=== PATIENT | female | born 1960 | race Caucasian/White ===

== ENCOUNTER 2021-11-21 21:04 | Outpatient (REF) | payer BC, SELFPAY ==
[2021-11-21 21:41] LABS: CREATININE 0.8 mg/dL (0.55-1.02); TSH (W/Ref FT4) 0.88 uIU/mL (0.36-3.74)
[2021-11-23 10:49] LABS: Hepatitis C Ab w Rflx HCV PCR Negative (Negative)
== END 2021-11-21 21:05 | disposition home or self-care (01) ==
LOC: LBN 21:04
PROVIDERS: PCP Family Medicine; Visit Provider Family Medicine
DX: I10 Essential (primary) hypertension (principal); E03.9 Hypothyroidism, unspecified; Z11.59 Encounter for screening for other viral diseases
CPT/HCPCS: 86803; 82565; 84443

== ENCOUNTER 2023-03-12 17:01 | Outpatient (REF) | payer BC, SELFPAY ==
[2023-03-12 19:03] LABS: ALT 46 U/L (14-59); AST 74 U/L (15-37); Albumin 3.5 g/dL (3.4-5.0); Alkaline Phosphatase 113 U/L (46-116); BUN 12 mg/dL (7-18); Bilirubin, Total 0.3 mg/dL (0.2-1.0); CREATININE 0.8 mg/dL (0.55-1.02); Calcium 8.9 mg/dL (8.5-10.1); Chloride 101 mmol/L (98-107); Estimated GFR 82.74 (mL/min/1.73m2); Folate 3.2 ng/mL (8.6-20.0); Glucose 99 mg/dL (74-106); Potassium 4.4 mmol/L (3.5-5.1); Sodium 138 mmol/L (136-145); TSH (W/Ref FT4) 6.26 uIU/mL (0.36-3.74); Total Protein 7.9 g/dL (6.4-8.2)
== END 2023-03-12 17:02 | disposition home or self-care (01) ==
LOC: NCHCN 17:01
PROVIDERS: PCP Family Medicine; Visit Provider Family Medicine
DX: E53.8 Deficiency of other specified B group vitamins (principal); E03.9 Hypothyroidism, unspecified; R74.8 Abnormal levels of other serum enzymes; I10 Essential (primary) hypertension
CPT/HCPCS: 80053; 82746; 84439; 84443

== ENCOUNTER 2024-05-21 22:52 | Outpatient (REF) | payer BC, SELFPAY ==
[2024-05-21 20:41] LABS: TSH (W/Ref FT4) 1.48 uIU/mL (0.36-3.74)
--- OUTSIDE RECORDS SUMMARY | 2024-05-21 22:54 | XMS_ITS | Encounter Summary ---
Author Organization [facility] [place] [address] Care Team Providers Care Quality Assurance Intern Name Role Phone Venus Morales MD Primary Care Provider [phone] Encounter Details Date Type Department Care Team (Late st Contact Info) Description 12/10/2014 Telephone Cardiology at [address] [address] Jerome De La Torre Jr., MD [address] [place] [id number] Social History Tobacco Use Types Packs/Day Years Used Date Smoking Tobacco: Never Assessed Sex and Gender Information Value Date Recorded Sex Assigned at Not on file Gender Identity Not on file Sexual Orientation Not on file documented as of this encounter Miscellaneous Notes * Telephone Encounter - Jerome De La Torre Jr., MD - 12/14/2014 2:20 PM EST Has developed some exercise intolerance- used to be able to do more and HR only 120-130- Now runs out of steam and HR to 170 ? Exercise induced arrhythmia- should have a regular exercise test then go from there * Telephone Encounter - Glendy Andersen - 12/10/2014 1:[address] Mata would like a call back @ [phone] on Saturday concerning this patient. documented in this encounter Plan of Treatment Upcoming Encounters Date Type Department Care Team (Late st Contact Info) Description 07/08/2024 3:30 PM EDT Office Visit Cardiology at [address] [place] [address] Jeyson Angel, [facility] [place] [address] documented as of this encounter Visit Diagnoses Not on filedocumented in this encounter Care Teams Quality Assurance Intern Relationship Specialty Start Date End Date Venus Morales MD PCP - General 09/05/10 11/26/23 documented as of this encounter
--- OUTSIDE RECORDS SUMMARY | 2024-05-21 22:54 | XMS_ITS | Encounter Summary ---
Author Organization [facility] Address [address] [place] [address] Care Team Providers Care Merchandising Stock Associate Name Role Phone Venus Morales MD Primary Care Provider [phone] Encounter Details Date Type Department Care Team (Late st Contact Info) Description 11/22/2021 Lab Requisition [facility] Pathology & Laboratory Medicine - [address] [address] Outr Resulting Lab, Provider Social History Tobacco Use Types Packs/Day Years Used Date Smoking Tobacco: Never Assessed Sex and Gender Information Value Date Recorded Sex Assigned at Not on file Gender Identity Not on file Sexual Orientation Not on file documented as of this encounter Plan of Treatment Not on file documented as of this encounter Procedures Procedure Name Priority Date/Time Associated Diagnosis Comments HEPATITIS C AB W REFLEX TO HCV RNA BY PCR Routine 11/21/2021 12:47 EST documented in this encounter Results * HEPATITIS C AB W REFLEX TO HCV RNA BY PCR (11/21/2021 12:47 EST) Hep C Antibody Negative Negative 11/23/2021 10:44 EST [facility] Blood VENOUS BLOOD / Unknown 11/21/2021 12:47 EST 11/22/2021 20:14 EST Provider Outr Resulting Lab CHEMISTRY & BLOOD GAS ORDERABLES [facility] [address] [place] [address] documented in this encounter Visit Diagnoses Not on filedocumented in this encounter Care Teams Merchandising Stock Associate Relationship Specialty Start Date End Date Venus Morales MD [address] [place] [address] PCP - General 09/29/09 documented as of this encounter
--- OUTSIDE RECORDS SUMMARY | 2024-05-21 22:54 | XMS_ITS | Encounter Summary ---
Author Organization [facility] Address [facility] [address] Care Team Providers Care Hands And Dial Inspector Name Role Phone Venus Morales MD Primary Care Provider [phone] Reason for Referral * Consultation (Urgent) - Closed Specialty Diagnoses / Procedures Referred By Contact Referred To Contact Electrophysiology / Cardiology Diagnoses PAF (paroxysmal atrial fibrillation) paf Monroe Grey MD [facility] [place] [address] Carlos Alberto Castellanos MD [facility] [place] [address] Referral ID Status Reason Start Date Expiration Date V isits Requested Visits Authorized [id number] Closed Consult, Test & Treat PCP Updated and/or Approved 11/15/2023 11/14/2024 1 1 Encounter Details Date Type Department Care Team (Latest Contact Info) Description 11/15/2023 Transcribe Orders eDH Incoming Referrals [phone] Monroe Grey MD [facility] [place] [address] PAF (paroxysmal atrial fibrillation) Social History Tobacco Use Types Packs/Day Years Used Date Smoking Tobacco: Never Assessed Sex and Gender Information Value Date Recorded Sex Assigned at Not on file Gender Identity Not on file Sexual Orientation Not on file documented as of this encounter Plan of Treatment Upcoming Encounters Date Type Department Care Team (Late st Contact Info) Description 07/08/2024 3:30 PM EDT Office Visit Cardiology at [address] [place] [address] Jeyson Angel, [facility] [place] [address] Scheduled Referrals Name Type Priority Associated Diagnoses Order Schedule Referral to Cardiac Electrophysiology Outpatient Referral Urgent PAF (paroxysmal atrial fibrillation) Ordered: 11/15/2023 documented as of this encounter Visit Diagnoses Diagnosis PAF (paroxysmal atrial fibrillation) Atrial fibrillation documented in this encounter Care Teams Hands And Dial Inspector Relationship Specialty Start Date End Date Venus Morales MD PCP - General 09/05/10 11/26/23 documented as of this encounter
--- OUTSIDE RECORDS SUMMARY | 2024-05-21 22:54 | XMS_ITS | Encounter Summary ---
Author Organization [facility] Address [facility] [place] [address] Care Team Providers Care Superintendent Menagerie Name Role Phone Nubia Mantilla ALICAI Primary Care Provider [phone] Reason for Visit * Auth/Cert (Routine) Specialty Diagnoses / Procedures Referred By Contac t Referred To Contact Diagnoses Paroxysmal atrial fibrillation Paroxysmal atrial fibrillation [I48.0] Procedures PRO COMPREHENSIVE EP EVAL ABLATION ATR FIB PULM VEIN ISOLATION PRO INTRACARD ELECTROPHYS 3-DIMENS MAPPING PRG STIM/PACING HEART POST IV DRUG INFU PRG INTRACARD ECHO, THER/DX INTERVENT ELECTROPHYSIOLOGY PROCEDURE TRANSESOPHAGEAL ECHO DURING CATH/EP PROCEDURE Mariel Johnson MD [facility] [place] [address] [facility] Referral ID Status Reason Start Date Expiration Date Visits Re quested Visits Authorized [id number] 1 1 Encounter Details Date Type Department Care Team (Late st Contact Info) Description 05/18/2024 7:30 AM EDT - 05/18/2024 12:00 PM EDT Surgery [place] [address] Mariel Johnson MD [facility] [place] [address] ELECTROPHYSIOLOGY PROCEDURE Social History Tobacco Use Types Packs/Day Years Used Date Smoking Tobacco: Never Smokeless Tobacco: Never Alcohol Use Standard Drinks/Week Comments Not Currently 0 (1 standard drink = 0.6 oz pur e alcohol) [facility] Inpatient Questions Answer Date Recorded Does Anyone Try to Keep You From Having Contact with Others or Doing Things Outside Your Home? no 05/18/2024 Feels Threatened by Someone no 02/2024 Feels Unsafe at Home or Work/School no 05/18/2024 Physical Signs of Abuse Present no 05/18/2024 Sex and Gender Information Value Date Recorded Sex Assigned at Not on file Gender Identity Not on file Sexual Orientation Not on file documented as of this encounter Last Filed Vital Signs Vital Sign Reading Time Taken Comments Blood Pressure 130/94 05/18/2024 12:00 PM EDT Pulse 82 05/18/2024 12:00 PM EDT Temperature 36.2 ??C (97.2 ??F) 05/18/2024 11:05 AM E DT Respiratory Rate 21 05/18/2024 12:00 PM EDT Oxygen Saturation 93% 05/18/2024 12:00 PM EDT Inhaled Oxygen Concentration - - Weight - - Height - - Body Mass Index - - documented in this encounter Discharge Instructions * Patient Instructions* Monroe Cronin MD - 05/18/2024 7:34 AM EDT DISCHARGE INSTRUCTIONS FOLLOWING YOUR ABLATION Catheter Insertion Area Care - You may take a shower if you wish the morning after the procedure. Wash the area with soap and water. - Look for signs of infection over the next several days. - A little spot of blood at the catheter insertion area is not unusual. A bruise or a small lump under the skin is normal; they generally disappear in three or four days. In some cases you may develop a larger bruise that may appear to extend somewhat down your thigh; this is normal and will resolve, generally within 1-2 weeks. - Expect some mild tenderness over the area where the catheter was inserted. This should improve during the 24 to 48nhours after the procedure. - Take Tylenol if needed and contact your doctor if the discomfort worsens. Avoid higher-dose ibuprofen (greater than 400mg twice daily) due to increased bleeding risk while on blood thinners (does not include aspirin). Problems to Watch For If there is bright red blood flowing from the catheter insertion area STOP what you are doing and lie down. Hold pressure steadily on the area for fifteen minutes. Call for help. If the bleeding does not stop in fifteen minutes, call 911. If there is rapid swelling with a ???black and blue?? color at the catheter insertion area, there may be bleeding inside. Call your doctor if there is any increase in size. Check the insertion site for the next few days at home. Signs of infection are: Redness Swelling Yellow, white, green or brown, foul smelling drainage Increased soreness If you think there is an infection, take your temperature. Then call your doctor. The limb on the side where you had the catheter inserted should look and feel normal in its color, sensation and temperature. If your leg becomes cool, pale, blue or changing color with numbness and tingling, contact your doctor. If you feel faint or dizzy, lie down with your feet elevated. Have someone call the doctor. If you are alert, drink fluids. Activity - Do not bend over, strain or lift heavy objects for 48 hours after the procedure. - Do not participate in active sports for 1 week. - Avoid heavy lifting (greater than 10 pounds) for one week following your procedure. Additional discharge instructions: Pt advised to be vigilant for any of the following clinical findings (or anything else out of the ordinary): Chest discomfort. Inflammation in the form of pericarditis may result in chest pain, which is not uncommon after an ablation procedure for atrial fibrillation. It often may be position-dependent, or will be exacerbated by ventilatory movement. If the patient experiences chest discomfort, it should be medically evaluated to ascertain the significance, and to assess for more serious alternative considerations requiring urgent intervention. If it otherwise is pericarditis, it commonly responds well to anti-inflammatory medication. Fever or sweats, significant malaise. Possibly a consequence of infection. This requires that the Cardiac Electrophysiology Service be contacted, or otherwise an urgent medical assessment should be obtained. Shortness of breath, increased exertional intolerance. A variety of pulmonary or cardiac processes could be responsible for this. This requires that the Cardiac Electrophysiology Service be contacted, or otherwise an urgent medical assessment should be obtained. This is not an exhaustive list. If the patient experiences anything out of the ordinary post-procedure, he/she is encouraged to contact his/her physician or the Cardiac Electrophysiology Service . documented in this encounter Medications at Time of Discharge Medication Sig Dispensed Refills Start Date End Date apixaban (Eliquis) 5 mg tabletIndications:PAF (paroxysmal atrial fibrillation) Take 1 tablet by mouth 2 times daily. 60 tablet 3 04/21/2024 dilTIAZem (Tiazac) 300 mg ER 24 hr capsule Take 1 capsule by mouth Daily at Noon. 03/16/2024 levothyroxine (Synthroid) 75 mcg tablet Take 75 mcg by mouth every morning. 03/16/2024 multivitamin (THERAGRAN) Tablet Take 1 tablet by mouth daily. famotidine (PEPCID) 40 mg tablet Take 40 mg by mouth daily as needed. 05/16/2010 albuterol (VENTOLIN HFA) 90 mcg/Actuation inhaler 05/16/2010 documented as of this encounter Progress Notes * Margaux Kahn RN - 05/18/2024 1:44 PM EDT Peyton is A+Ox4, following commands. AVS reviewed with pt. No questions or concerns at this time. Ivs dc'd. Dr. Johnson bedside to remove R groin sutures. Scope patch removed per pt request. 1354: Pt discharged from unit * Shelby Mcadams RN - 05/18/2024 11:52 AM EDT Break coverage. * Margaux Kahn RN - 05/18/2024 11:05 AM EDT Pt to PACU 20 arrived via bed; monitor applied, alarms set and audible. documented in this encounter H&P Notes * Mariel Johnson MD - 05/18/2024 7:19 AM EDT Images from the original note were not included. 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 Her first documented episode of AF was in February of last year -when she woke up feeling 'wrong' and felt faint (has a history of ? Neurocardiogenic syncope). She indicated that in the past, she has had episodes of neurocardiogenic syncope, she has had a significant prodrome. With this episode, she fainted within few minutes. She ended up at [facility], where she was given IV diltiazem, spontaneously cardioverted after a while. More recently, after an episode of gastroenteritis that lasted for few days, she felt lightheaded and had another episode of loss of consciousness, she estimates that she has had up to 22 hours of atrial fibrillation at the time sometimes. The burden and frequency of atrial fibrillation episodes appears to be increasing. Some triggers include possible dehydration...' No recent fevers/chills or infectious symptoms NPO since last night No food since last night No clear liquids since this am Held anticoagulation since this am Fever, cough, upper respiratory symptoms: yes/no no GI symptoms: no Card Symptoms: palpitations last night No prior issues with sedation / anesthesia Patient Active Problem List Diagnosis PAF (paroxysmal atrial fibrillation) Asthma Gastroesophageal reflux Obstructive sleep apnea Hypothyroidism Facility-Administered Medications Prior to Admission Medication Dose Route Frequency Provider Last Rate Last Admin sodium chloride 0.9% infusion 1,000 mL Intravenous Continuous Mariel Johnson MD Medications Prior to Admission Medication Sig Dispense Refill Last Dose apixaban (Eliquis) 5 mg tablet Take 1 tablet by mouth 2 times daily. 60 tablet 3 05/17/2024 dilTIAZem (Tiazac) 300 mg ER 24 hr capsule Take 1 capsule by mouth Daily at Noon. 05/17/2024 levothyroxine (Synthroid) 75 mcg tablet Take 75 mcg by mouth every morning. 05/18/2024 multivitamin (THERAGRAN) Tablet Take 1 tablet by mouth daily. 05/15/2024 famotidine (PEPCID) 40 mg tablet Take 40 mg by mouth daily as needed. 05/17/2024 albuterol (VENTOLIN HFA) 90 mcg/Actuation inhaler Unknown History reviewed. No pertinent family history. Social History Socioeconomic History Marital status: Spouse name: None Number of children: None Years of education: None Highest education level: None Occupational History None Tobacco Use Smoking status: Never Smokeless tobacco: Never Substance and Sexual Activity Alcohol use: Not Currently Drug use: Not Currently Sexual activity: None Other Topics Concern None Social History Narrative None Social Determinants of Health Financial Resource Strain: Not on file Food Insecurity: Not on file Transportation Needs: Not on file Physical Activity: Not on file Intimate Partner Violence: Not At Risk (05/18/2024) IPV Inpatient Questions Prevent Contact with Others: no Feels Threatened by Someone: no Feels Unsafe at Home: no Physical Signs of Abuse Present: no Housing Stability: Not on file Exam Patient Vitals for the past 24 hrs: Temp Pulse Resp BP SpO2 O2 Device 05/18/24 0631 36.8 ??C (98.2 ??F) (!) 104 20 138/90 97 % RA Physical Exam Constitutional: Comments: There is no height or weight on file to calculate BMI. HENT: Nose: No congestion. Mouth/Throat: Pharynx: No oropharyngeal exudate. Cardiovascular: Rate and Rhythm: Regular rhythm. Tachycardia present. Pulses: Normal pulses. Pulmonary: Effort: Pulmonary effort is normal. Skin: General: Skin is warm. Neurological: Mental Status: She is alert. Impression This is a 63 y.o. woman with pAF here for elective AF ablation (PFA) No recent sustained episodes of AF On apixaban - no missed doses Low [id number] score. No need for VIVIEN We discussed risks of the procedure, consent obtained MARIEL JOHNSON MD 05/18/2024 Pager [phone] Plan 1) Anticipate PFA ablation for AF 2) Dscharge to home later today 3) Consent in physical chart ASA: 1: Normally healthy patient Mallampati: II: tonsillar pillars are blocked by the tongue Sedation Plan: anesthesia MARIEL JOHNSON MD Recent Results (from the past 24 hour(s)) CBC (with Diff) Result Value Ref Range White Blood Cell 7.54 4.00 - 9.50 x10(3)/mcL Red Blood Cell 4.05 4.00 - 5.21 x10(6)/mcL Hemoglobin 13.1 11.7 - 15.5 g/dL Hematocrit 40.3 35.7 - 45.8 % Mean Cell Volume 99.5 (H) 82.6 - 94.4 fL Mean Cell Hemoglobin 32.3 (H) 27.1 - 32.0 pg Mean Cell Hemoglobin Concentration 32.5 31.7 - 35.0 g/dL Platelet 313 145 - 357 x10(3)/mcL Mean Platelet Volume 8.7 7.6 - 12.9 fL RDW Standard Deviation 48.8 (H) 37.0 - 46.0 fL RDW coefficient of variation 13.2 11.5 - 14.1 % NRBC% auto 0.0 % NRBC Absolute 0.00 0.00 - 0.00 x10(3)/mcL Neutrophil % 48.9 % Neutrophil Absolute 3.69 1.70 - 6.10 x10(3)/mcL Lymph % 35.8 % Lymph Absolute 2.70 0.90 - 3.20 x10(3)/mcL Monocyte % 9.7 % Monocyte Absolute 0.73 0.30 - 0.90 x10(3)/mcL Eos % 4.4 % Eos Absolute 0.33 0.00 - 0.40 x10(3)/mcL Basophil % 0.9 % Baso Absolute 0.07 0.00 - 0.10 x10(3)/mcL Immature Gran % 0.3 % Immature Gran Absolute 0.02 0.00 - 0.04 x10(3)/mcL documented in this encounter Plan of Treatment Upcoming Encounters Date Type Department Care Team (Late st Contact Info) Description 07/08/2024 3:30 PM EDT Office Visit Cardiology at [address] [place] [address] Jeyson Angel PA [facility] [place] [address] documented as of this encounter Procedures Procedure Name Priority Date/Time Associated Diagnosis Comments ELECTROPHYSIOLOGY PROCEDURE Routine 05/18/2024 10:25 AM EDT Paroxysmal atrial fibrillation BLOOD GAS, POC Routine 05/18/2024 9:14 AM EDT EXTRA TUBES Routine 05/18/2024 6:28 AM EDT GREEN TUBE HOLD Routine 05/18/2024 6:28 AM EDT CBC (WITH DIFF) STAT 05/18/2024 6:28 AM EDT BASIC METABOLIC PANEL Add-On 05/18/2024 6:28 AM EDT EKG 12-LEAD Routine 05/18/2024 6:22 AM EDT Paroxysmal atrial fibrillation documented in this encounter Results * ELECTROPHYSIOLOGY PROCEDURE (05/18/2024 10:25 AM EDT) Anatomical Region Laterality Modality Other Narrative 05/19/2024 7:38 AM EDT Table formatting from the original result was not included. Images from the original result were not included. 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 Method: ??After confirmation of informed consent, the patient was brought to the Electrophysiology Laboratory in the fasting state. A time out was performed. Continuous electrocardiographic monitoring was instituted. General anesthesia and airway were managed by the Anesthesiology Service. Both femoral regions were prepared and draped in the usual sterile manner. Local anesthesia was achieved with a 3:2 mixture of 2% lidocaine and 0.5% bupivacaine administered subcutaneously. Using ultrasound ??for guidance, the following hemostatic sheaths (all with sidearms and flushed) were inserted using a modified Seldinger technique and confirmed in the vein by ultrasound as well as fluoroscopy. ??An i.v. Heparin bolus was now administered followed by an infusion. ??An ACT target of 300-350 seconds was maintained for the procedure. Catheters were positioned under fluoroscopic or EAM mapping guidance as follows: ?? Sheath Catheter Insertion site Site 8.5-Fr short exchanged for 16-Fr ?'FaraDrive' Steerable Sheath 7-Fr Pentaray mapping catheter OR 13-Fr 'FaraWave' pulsed field ablation catheter Right femoral vein Left atrium 9-Fr long 8-Fr Soundstar intracardiac echo Left femoral vein Right atrium ?? 7-Fr long 6-Fr Decapolar Inquiry ??Left femoral vein Coronary sinus Of note the coronary sinus was difficult to cannulate and our catheter would not advance beyond the proximal portion of the vein. Total Fluoroscopy Time: ??15.7 ??minutes. Total dose area product: 409 cGycm2. At the conclusion of the ablation procedure, prior to catheter removal, the pulmonary veins and the pericardial space were surveyed, with no significant effusion identified (unchanged from initial ICE imaging). ?? The long sheaths were exchanged over guidewires for short sheaths. All femoral vein access sites were closed using the Vascade closure device. The left sided venotomies were closed with Vascade MVP and the larger right sided venotomy was closed with a Vascade XL. ?? A single 'figure 8' suture was also applied over the skin of the right femoral vein access site. Catheters and sheaths were removed, and hemostasis was achieved via manual compression (following administration of a total of 40 mg of protamine intravenously). The patient tolerated the procedure well, with no apparent acute complications and was transferred to the recovery area in stable condition. Transeptal Access: A Carto-Sound shell of the left atrium was created from contours obtained with ultrasound imaging. A 180 cm soft J-tipped wire was advanced into the short sheath and into the SVC. The 16 Fr FaraDrive introducer and its dilator were advanced into the SVC over this wire. The dermotomy incision was widened if necessary to accommodate the sheath. The J-wire was now removed and the sheath was allowed to bleed back for estimation of left atrial pressure and to obtain an arterial gas sample (O2 sat 99%). A 19pay Protrack Pigtail transeptal access wire (180cm, 0.035) was placed into the FaraDrive sheath. The tip of the sheath dilator was positioned at the inferior and anterior aspect of the foramen ovalis (with 'tenting of the fossa' seen) and the guidewire was advanced in the left atrium guided by ICE imaging, after a brief < 1 second application of radiofrequency energy and visualisation with ICE for left atrial entry. Of note the orientation of the heart was somewhat unusual and resulted in difficult ICE visualization of the transseptal system at times. The transseptal access wire was advanced into the LUPV and the 'FaraDrive' sheath was advanced over the guidewire into the left atrium after appropriately de-airing the catheter and flushing thoroughly according to provided instructions. All side arms received a continuous infusion ??of heparinised saline. The RF guidewire was now replaced with a J-Tipped 0.035 Montemayor guidewire placed through the FaraPulse catheter, for pulmonary vein positioning. Left Atrial Anatomy and Mapping: Left atrial geometry was confirmed by comparison to the ultrasound contours using the Carto Electroanatomic mapping system. Geometry and a voltage map(s) were created using the Pentaray mapping catheter. There were four main pulmonary veins. Ablation in the Left Atrium: The left upper pulmonary vein was targeted for ablation first, followed by the LIPV, RIPV and RSPV. Limited electroanatomic mapping was performed in each of the veins which were then sampled for electrical signal with the FaraPulse mapping catheter. This catheter was manipulated into 'Flower' and 'Basket' orientations as appropriate. Of note our Montemayor wire required replacement during the case as the first wire would not move freely within the catheter. Lesion parameters were as follows Vein 'Basket' / number of lesions 'Flower'/ number of lesions Additional lesions Notes LUPV 4 4 2 Ruthie 2 Inferior bias ? LIPV 4 4 ? RIPV 4 4 2 Septal ruthie 2 Posterior ruthie ? RUPV 4 4 ? After initial re-map ?? 2 right inferior/anterior 2 right superior/roof 2 right inferior/anterior with inferior bias ?Grand Total Total 16 16 14 46 Left atrial dwell time: 70 minutes Post Ablation Repeat mapping After completion of the ablation lesions, the EAM system was used to perform a voltage map of the atrium and to confirm pulmonary vein isolation. ??Additional lesions were delivered as summarized above with excellent results on repeat mapping. See the image below for full details. The catheters were now returned to the right atrium. Post-ablation Assessment and EPS: Parameters Values (ms) Intervals ?? Cycle length 622 NH 180 QRS 83 QT 377 QTc ?? AH 81 HV 42 ?? AV Wenkebach 310 AERP 600/230 AVN ERP </= AERP Posterior view of the voltage map of the left atrium pre (left) and post (right) pulsed field ablation. Results: Successful PFA isolation of all 4 main pulmonary veins Discharge home Two hours of bedrest for venotomy healing. A figure 8 stitch was placed over the right sided venotomy. 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, present for the entire procedure and personally edited this note MARIEL JOHNSON MD Mariel Johnson MD EP PROCEDURE ORDERAB LES * (ABNORMAL) BLOOD GAS, POC (05/18/2024 9:14 AM EDT) Sodium, POC 141 135 - 145 mmol/L 05/21/2024 11:25 AM EDT [facility] Potassium, POC 3.1(L) 3.5 - 5.0 mmol/L 05/21/2024 11:25 AM EDT [facility] pH, POC 7.38 7.35 - 7.45 05/21/2024 11:25 AM EDT [facility] Ionized Calcium, POC 1.18 1.15 - 1.33 mmol/L 05/21/2024 [facility] pCO2, POC 34(L) 35 - 45 mmHg 05/21/2024 11:25 AM EDT [facility] pO2, POC 185(H) 85 - 104 mmHg 05/21/2024 11:[facility] Base Excess, POC -5.0(L) -3.0 - 3.0 mmol/L 05/21/2024 11:25 AM EDT [facility] Hematocrit, POC 31.0(L) 35.7 - 45.8 %PCV 05/21/2024 11:25 AM EDT [facility] Hemoglobin, POC 10.5(L) 11.7 - 15.5 g/dL 05/21/2024 11:25 AM [facility] Comment:The calculation of h emoglobin from hematocrit assumes a normal MCHC. Bicarbonate, POC 19.8(L) 20.0 - 26.0 mmol/L 05/21/2024 11:25 AM EDT [facility] Carbon Dioxide, POC 21(L) 22 - 31 mmol/L 05/21/2024 11:25 AM [facility] Blood VENOUS BLOOD SPECIMEN / Unknown 05/18/2024 9:14 AM EDT 05/21/2024 11:26 AM EDT Mariel Johnson MD POINT OF CARE TEST O RDERABLES [facility] [place] [address] * (ABNORMAL) Basic Metabolic Panel (05/18/2024 6:28 AM EDT) Glucose 110 65 - 199 mg/dL 05/18/2024 9:11 AM [facility] Blood Urea Nitrogen 7(L) 8 - 18 mg/dL 05/18/2024 9:11 AM [facility] Creatinine 0.86 0.70 - 1.20 mg/dL 05/18/2024 9:[facility] Sodium 143 135 - 145 mMol/L 05/18/2024 9:11 AM [facility] Potassium 4.5 3.5 - 5.0 mMol/L 05/18/2024 9:11 AM [facility] Chloride 107 98 - 107 mMol/L 05/18/2024 9:11 [facility] Carbon Dioxide 24 22 - 31 mMol/L 05/18/2024 9:11 AM [facility] Anion Gap 12 5 - 15 mMol/L 05/18/2024 9:11 AM EDT [facility] Calcium 9.8 8.5 - 10.5 mg/dL 05/18/2024 9:11 AM EDT [facility] Est Glomerular Filtration Rate - Female 76 mL/min/1. 73 m?? 05/18/2024 9:11 AM EDT [facility] Comment: This patient's estimated GFR was calculated using the 2020 CKD-EPI equation. The estimated GFR can vary from the measured GFR by up to 30% in the absence of rapidly changing kidney function. Assessment of the estimated GFR is not appropriate when creatinine concentrations are rapidly changing. For clinical situations in which a more precise estimate of GFR is necessary, consider alternative methods of GFR estimation such as a 24-hour urine creatinine clearance. Assignment of CKD stage 1 - 5 for patients with an eGFR near the transition point between stages may be based on clinical assessment of muscle mass and symptoms in addition to eGFR. Link: eGFR Calculator [employer] Fasting Status No 05/18/2024 9:11 AM EDT [facility] Blood VENOUS BLOOD SPECIMEN / Unknown 05/18/2024 6:28 AM EDT 05/18/2024 7:00 AM EDT Mariel Johnson MD CHEMISTRY ORDERABLES Performing Organization Address City/[facility]/ZIP Co de Phone Number [facility] [place] [address] * Green Tube HOLD (05/18/2024 6:28 AM EDT) Green Hold Hold for Add-on 05/18/2024 8:01 AM EDT [facility] [facility] Blood VENOUS BLOOD SPECIMEN / Unknown 05/18/2024 6:28 AM EDT 05/18/2024 7:00 AM EDT Mariel Johnson MD CHEMISTRY ORDERABLES [facility] [place] [address] * (ABNORMAL) CBC (with Diff) (05/18/2024 6:28 AM EDT) White Blood Cell 7.54 4.00 - 9.50 x10(3)/mc L 05/18/2024 7:08 AM [facility] Red Blood Cell 4.05 4.00 - 5.21 x10(6)/mc L 05/18/2024 7:08 AM [facility] Hemoglobin 13.1 11.7 - 15.5 g/dL 05/18/2024 7:08 AM [facility] Hematocrit 40.3 35.7 - 45.8 % 05/18/2024 7:08 AM [facility] Mean Cell Volume 99.5(H) 82.6 - 94.4 fL 05/18/2024 7:08 AM [facility] Mean Cell Hemoglobin 32.3(H) 27.1 - 32.0 pg 05/18/2024 7:08 AM [facility] Mean Cell Hemoglobin Concentration 32.5 31.7 - 35.0 g/dL 05/18/2024 7:08 AM [facility] Platelet 313 145 - 357 x10(3)/mc L 05/18/2024 7:08 AM [facility] Mean Platelet Volume 8.7 7.6 - 12.9 fL 05/18/2024 7:08 AM [facility] RDW Standard Deviation 48.8(H) 37.0 - 46.0 fL 05/18/2024 7:08 AM [facility] RDW coefficient of variation 13.2 11.5 - 14.1 % 05/18/2024 7:08 AM [facility] NRBC% auto 0.0 % 05/18/2024 7:08 AM [facility] NRBC Absolute 0.00 0.00 - 0.00 x10(3)/mc L 05/18/2024 7:08 AM [facility] Neutrophil % 48.9 % 05/18/2024 7:08 AM EDT [facility] Neutrophil Absolute 3.69 1.70 - 6.10 x10(3)/mc L 05/18/2024 7:08 AM EDT [facility] Lymph % 35.8 % 05/18/2024 7:08 AM EDT [facility] Lymph Absolute 2.70 0.90 - 3.20 x10(3)/mc L 05/18/2024 7:08 AM EDT [facility] Monocyte % 9.7 % 05/18/2024 7:08 AM EDT [facility] Monocyte Absolute 0.73 0.30 - 0.90 x10(3)/mc L 05/18/2024 7:08 AM EDT [facility] Eos % 4.4 % 05/18/2024 7:08 AM EDT [facility] Eos Absolute 0.33 0.00 - 0.40 x10(3)/mc L 05/18/2024 7:08 AM EDT [facility] Basophil % 0.9 % 05/18/2024 7:08 AM EDT [facility] Baso Absolute 0.07 0.00 - 0.10 x10(3)/mc L 05/18/2024 7:08 AM EDT [facility] Immature Gran % 0.3 % 7:08 AM EDT [facility] Immature Gran Absolute 0.02 0.00 - 0.04 x10(3)/mc L 05/18/2024 7:08 AM EDT [facility] Blood No Charge / Unknown 05/18/2024 6:28 AM EDT 05/18/2024 6:46 AM EDT Mariel Johnson MD HEMATOLOGY ORDERABLE S [facility] [place] [address] * EKG 12 Lead (05/18/2024 6:22 AM EDT) Ventricular rate 101 BPM MUSE SYSTEM Atrial Rate 101 BPM MUSE SYSTEM P-R Interval 154 ms MUSE SYSTEM QRS Duration 80 ms MUSE SYSTEM Q-T Interval 346 ms MUSE SYSTEM QTC Calculated (Bezet) 448 ms MUSE SYSTEM Calculated P Gary 47 degrees MUSE SYSTEM Calculated R Gary -28 degrees MUSE SYSTEM Calculated T Gary 64 degrees MUSE SYSTEM INTERPRETATION Sinus tachycardia Low voltage QRS Poor R wave progression Borderline ECG No previous ECGs available I personally reviewed the tracing and edited the fellows interpretation Confirmed by fellow MD Iraj, Kary ([id number]) on 05/18/2024 3:34:11 PM Confirmed by MD Mark Jon ([id number]) on 05/19/2024 2:03:37 PM MUSE SYSTEM 05/18/2024 6:22 AM EDT 05/19/2024 2:03 PM EDT Mariel Johnson MD ECG ORDERABLES MUSE SYSTEM documented in this encounter Visit Diagnoses Diagnosis Paroxysmal atrial fibrillation Atrial fibrillation Paroxysmal atrial fibrillation Atrial fibrillation documented in this encounter Administered Medications Inactive Administered Medications - up to 3 most recent administrations Medication Order MAR Action Action Date Dose Rate Site BUPivacaine (pf) (Marcaine) (5 mg/mL) 0.5% injection 150 mg 150 mg (30 mL), Subcutaneous, ONCE, 1 dose, On Sat05/18/24 at 0945, EP (Intra-Procedure), Routine Given 05/18/2024 8:20 AM EDT 150 mg lactated ringers infusion 1,000 mL, at 100 mL/hr, Intravenous, CONTINUOUS, Starting on Sat05/18/24 at 0630, Until Sat05/18/24 at 1354, Day of Surgery (Day of Procedure) New Bag 05/18/2024 8:58 AM EDT New Bag 05/18/2024 7:38 AM EDT New Bag 05/18/2024 6:38 AM EDT 1,000 mLs 100 mL/hr lidocaine (Xylocaine) (20 mg/mL) 2% injection 400 mg 400 mg (20 mL), Subcutaneous, ONCE, 1 dose, On Sat05/18/24 at 0945, EP (Intra-Procedure), Routine Given 05/18/2024 8:20 AM EDT 400 mg lidocaine (Xylocaine) 1% (10 mg/mL) injection 3 mg 3 mg (0.3 mL), Subcutaneous, ONCE PRN, 1 dose, Starting on Sat05/18/24 at 0611, Until Sat05/18/24 at 0638, for discomfort with PIV insertion, Day of Surgery (Day of Procedure), Routine Given 05/18/2024 6:38 AM EDT 3 mg scopolamine (Transderm-Scop) 1 mg over 3 days patch 1 patch 1 patch, Transdermal, Administer over 24 Hours, ONCE, 1 dose, On Sat05/18/24 at 0715, Day of Surgery (Day of Procedure), Routine Patch Applied 05/18/2024 7:07 AM EDT 1 patch 01- Ear Behind (Left) documented in this encounter Active and Recently Administered Medications Times are shown in EDT. Scheduled Medication Order 05/16/2024 05/17/2024 05/18/2024 acetaminophen ([facility]) (1,000 mg/100 mL) infusion 1,000 mg 1,000 mg, Intravenous, at 400 mL/hr, Administer over 15 Minutes, ONCE, 1 dose, On Sat05/18/24 at 1015, - Maximum dose of acetaminophen is 4,000 mg from all sources in 24 hours. - Unless otherwise specified, when ordered PRN for pain, acetaminophen should be given first if other PRN pain medications are ordered., Routine, Is ketorolac (Toradol) IV contraindicated? Yes, Can this patient tolerate oral medications or suppositories? No 1015 (Due) BUPivacaine (pf) (Marcaine) (5 mg/mL) 0.5% injection 150 mg (COMPLETED) 150 mg (30 mL), Subcutaneous, ONCE, 1 dose, On Sat05/18/24 at 0945, EP (Intra-Procedure), Routine 0820 (Given - Provid er: Laura Bragg RN) lidocaine (Xylocaine) (20 mg/mL) 2% injection 400 mg (COMPLETED) 400 mg (20 mL), Subcutaneous, ONCE, 1 dose, On Sat05/18/24 at 0945, EP (Intra-Procedure), Routine 0820 (Given - Provid er: Laura Bragg RN) scopolamine (Transderm-Scop) 1 mg over 3 days patch 1 patch 1 patch, Transdermal, Administer over 24 Hours, ONCE, 1 dose, On Sat05/18/24 at 0715, Day of Surgery (Day of Procedure), Routine 0707 (Patch Applied - Provider: Renetta Dailey RN)1355 (Due: Patch Removed - Provider: Automatic Discharge Provider - Comment: Time automatically adjusted from order being discontinued) Continuous Medication Order 05/16/2024 05/17/2024 05/18/2024 lactated ringers infusion (CANCELED) 1,000 mL, at 100 mL/hr, Intravenous, CONTINUOUS, Starting on Sat05/18/24 at 0630, Until Sat05/18/24 at 1354, Day of Surgery (Day of Procedure) 0638 (New Bag - Prov ider: Candida Shipley RN)0737 (Paused - Provider: Fam Fishman CRNA - Comment: Switch to gravity)0738 (New Bag - Provider: Fam Fishman CRNA)0858 (New Bag - Provider: Fam Fishman CRNA)1026 (Anesthesia Volume Adjustment - Provider: Fam Fishman CRNA) PRN Medication Order 05/16/2024 05/17/2024 05/18/2024 acetaminophen (Tylenol) tablet 650 mg 650 mg, Oral, EVERY 4 HOURS PRN, Starting on Sat05/18/24 at 1134, Until Sat05/18/24 at 1556, Pain, Fever, Mild-moderate pain (1-6), Maximum dose of acetaminophen is 4,000 mg from all sources in 24 hours. When ordered for pain, acetaminophen should be given even when other ordered pain medications are indicated., Recovery (Recovery-Hospital Unit), Routine lidocaine (Xylocaine) 1% (10 mg/mL) injection 3 mg (COMPLETED) 3 mg (0.3 mL), Subcutaneous, ONCE PRN, 1 dose, Starting on Sat05/18/24 at 0611, Until Sat05/18/24 at 0638, for discomfort with PIV insertion, Day of Surgery (Day of Procedure), Routine 0638 (Given - Provid er: Candida Shipley RN) documented in this encounter Care Teams Superintendent Menagerie Relationship Specialty Start Date End Date Nubia Mantilla, SPREADING MACHINE OPERATOR [facility] [place] [address] PCP - General Family Medicine 04/03/24 documented as of this encounter
--- OUTSIDE RECORDS SUMMARY | 2024-05-21 22:54 | XMS_ITS | Encounter Summary ---
[place] [address] Care Team Providers Care Correspondence Section Supervisor Name Role Phone Jose RafaelNubia APRN Primary Care Provider [phone] Encounter Details Date Type Department Care Team (Late st Contact Info) Description 04/20/2024 Telephone Cardiology at [address] [phone] Ariadna Jaeger RN Social History Tobacco Use Types Packs/Day Years Used Date Smoking Tobacco: Never Smokeless Tobacco: Never Sex and Gender Information Value Date Recorded Sex Assigned at Not on file Gender Identity Not on file Sexual Orientation Not on file documented as of this encounter Miscellaneous Notes * Telephone Encounter - Ariadna Jaeger RN - 04/20/2024 12:30 PM EDT VM left by patient who stated she is supposed to start on anticoagulation a month prior to having aprocedure done by Dr Castellanos on 05/18/24. Dr Castellanos had mentioned eliquis, but would have patient takewhatever her insurance will cover. Requested callback to home number. Ariadna Jaeger RN, BSN [facility] [place] [phone] documented in this encounter Plan of Treatment Upcoming Encounters Date Type Department Care Team (Late st Contact Info) Description 07/08/2024 3:30 PM EDT Office Visit Cardiology at [address] [place] [address] Jeyson Angel, [facility] [place] [address] documented as of this encounter Visit Diagnoses Not on filedocumented in this encounter Care Teams Correspondence Section Supervisor Relationship Specialty Start Date End Date Nubia Mantilla APRN [facility] [address] [place] [address] PCP - General Family Medicine 04/03/24 documented as of this encounter
--- OUTSIDE RECORDS SUMMARY | 2024-05-21 22:54 | XMS_ITS | Encounter Summary ---
Author Organization [facility] Address [facility] [place] [address] Care Team Providers Care Applications Tester Name Role Phone Venus Morales MD Primary Care Provider [phone] Encounter Details Date Type Department Care Team (Late st Contact Info) Description 09/13/2016 11:00 AM EST Ext Surgery or Single Event [facility] [address] [facility] [place] [id number] Jerome De La Torre Jr., MD [address] [place] [address] ALVARES (dyspnea on exertion) Social History Tobacco Use Types Packs/Day Years [...] 3:30 PM EDT Office Visit Cardiology at [place] [address] [place] [id number] Jeyson Angel PA [facility] [place] [address] documented as of this encounter Procedures Procedure Name Priority Date/Time Associated Diagnosis Comments STRESS TEST SCAN 09/14/2016 12:0 0 AM EST ECG SCAN 09/14/2016 12:00 AM EST documented in this encounter Results * SCAN DOC: STRESS TEST (09/14/2016 12:00 AM EST) Anatomical Region Laterality Modality Other Scanning Provider MEDIA MGR SCAN EXT O RDR/RSLT * SCAN DOC: ECG (09/14/2016 12:00 AM EST) Scanning Provider MEDIA MGR SCAN EXT O RDR/RSLT documented in this encounter Visit Diagnoses Diagnosis ALVARES (dyspnea on exertion) Other dyspnea and respiratory abnormality documented in this encounter Care Teams Applications Tester Relationship Specialty Start Date End Date Venus Morales MD PCP - General 09/05/10 11/26/23 documented as of this encounter
--- OUTSIDE RECORDS SUMMARY | 2024-05-21 22:54 | XMS_ITS | Referral Summary ---
Author Organization [facility] Address [address] [place] [address] Care Team Providers Care Firebrick Layer Name Role Phone Venus Morales MD Primary Care Provider [phone] Social History Tobacco Use Types Packs/Day Years Used Date Smoking Tobacco: Never Assessed Sex and Gender Information Value Date Recorded Sex Assigned at Not on file Gender Identity Not on file Sexual Orientation Not on file Plan of Treatment Not on file Procedures Procedure Name Priority Date/Time Associated Diagnosis Comments HEPATITIS C AB W REFLEX TO HCV RNA BY PCR Routine 11/21/2021 12:47 EST from Last 3 Months or Most Recently Relevant to Health Maintenance Results * HEPATITIS C AB W REFLEX TO HCV RNA BY PCR (11/21/2021 12:47 EST) Hep C Antibody Negative Negative 11/23/2021 10:44 EST [facility] Blood VENOUS BLOOD / Unknown 11/21/2021 12:47 EST 11/22/2021 20:14 EST Provider Outr Resulting Lab CHEMISTRY & BLOOD GAS ORDERABLES [facility] [address] [place] [address] from Last 3 Months or Most Recently Relevant to Health Maintenance Care Teams Firebrick Layer Relationship Specialty Start Date End Date Venus Morales MD [address] [place] [address] PCP - General 09/29/09
--- OUTSIDE RECORDS SUMMARY | 2024-05-21 22:54 | XMS_ITS | Clinical Summary ---
Author Organization [facility] Address [facility] [place] [address] Care Team Providers Care Muffler Installer Name Role Phone Nubia Mantilla APRN Primary Care Provider Allergies Active Allergy Reactions Criticality Noted Date Comments Misc. Devices 05/06/2024 Severe dizziness - per pt I was so dizzy (spinning) that I couldn't even sit up for about 10 hours Nsaids (Non-Steroidal Anti-Inflammatory Drug) High CIS - Anaphylaxis Opioids - Morphine Analogues 05/06/2024 Severe dizziness - per pt I was so dizzy (spinning) that I couldn't even sit up for about 10 hours Medications Medication Sig Dispensed Refills Start Date End Date Status albuterol (VENTOLIN HFA) 90 mcg/Actuation inhaler 05/16/2010 Active famotidine (PEPCID) 40 mg tablet Take 40 mg by mouth daily as needed. 05/16/2010 Active dilTIAZem (Tiazac) 300 mg ER 24 hr capsule Take 1 capsule by mouth Daily at Noon. 03/16/2024 Active levothyroxine (Synthroid) 75 mcg tablet Take 75 mcg by mouth every morning. 03/16/2024 Active multivitamin (THERAGRAN) Tablet Take 1 tablet by mouth daily. Active apixaban (Eliquis) 5 mg tabletIndications:PAF (paroxysmal atrial fibrillation) Take 1 tablet by mouth 2 times daily. 60 tablet 3 04/21/2024 Active Active Problems Problem Noted Date Diagnosed Date PAF (paroxysmal atrial fibrillation) 12/13/2023 Asthma 12/13/2023 Gastroesophageal reflux 12/13/2023 Obstructive sleep apnea 12/13/2023 Hypothyroidism 12/13/2023 Encounters Date Type Department Care Team Description 05/18/2024 7:38 AM EDT Anesthesia Event Electrophysiology Lab at [place] [phone] Eden Lockett MD Hibbert, Jacob S 05/18/2024 7:30 AM EDT - 05/18/2024 12:00 PM EDT Surgery [place]rophys[place] [phone] Mariel Castellanos MD ELECTROPHYSIOLOGY PROCEDURE 05/18/2024 6:04 AM EDT - 05/18/2024 1:55 PM EDT Hospital Encounter PACU at [place] [phone] Mariel Castellanos MD Paroxysmal atrial fibrillation Discharge Disposition: Home 05/05/2024 Telephone Cardiology at [place] [phone] Tri Shipley RN Pre Procedure Call 04/21/2024 Orders Only Cardiology at [place] [phone] Tri Shipley RN PAF (paroxysmal atrial fibrillation) 04/20/2024 Telephone Cardiology at [place] [phone] Ariadna Jaeger RN 04/03/2024 10:40 AM EDT Office Visit Cardiology at [address] [phone] Mariel Castellanos MD longterm current use of antiarrhythmic drug; Paroxysmal atrial fibrillation 04/03/2024 Travel from Last 3 Months Social History Tobacco Use Types Packs/Day Years Used Date Smoking Tobacco: Never Smokeless Tobacco: Never Tobacco Cessation:Counseling Given: Not Answered Alcohol Use Standard Drinks/Week Comments Not Currently 0 (1 standard drink = 0.6 oz pur e alcohol) [facility] Inpatient Questions Answer Date Recorded Does Anyone [...] on file Sexual Orientation Not on file Last Filed Vital Signs Vital Sign Reading Time Taken Comments Blood Pressure 122/85 05/18/2024 12:45 PM EDT Pulse 91 05/18/2024 12:45 PM EDT Temperature 37.1 ??C (98.8 ??F) 05/18/2024 12:12 PM E DT Respiratory Rate 26 05/18/2024 12:45 PM EDT Oxygen Saturation 91% 05/18/2024 12:45 PM EDT Inhaled Oxygen Concentration - - Weight 82.6 kg (182 lb) 04/03/2024 10:51 AM EDT Height 162.6 cm (5' 4) 04/03/2024 10:51 AM EDT Body Mass Index 31.24 04/03/2024 10:51 AM EDT Plan of Treatment Upcoming Encounters Date Type Department Care Team (Late st Contact Info) Description 07/08/2024 3:30 PM EDT Office Visit Cardiology at [address] [place] [address] Jeyson Angel, [facility] [place] [address] Health Maintenance Due Date Last Done Comments CT Colonography 1959 Colonoscopy 1960 Colorectal Cancer Screening 1960 FIT DNA 1959 FIT 1960 Sigmoidoscopy (10 year) with FIT yearly 1959 Sigmoidoscopy 1960 Pneumococcal Vaccine: At-Risk 5-64yrs (1 of 2 - PCV) 0 1965 HIV screen 1977 Hepatitis C Screening 1977 Lipid Screening 1977 Tdap adult 1978 Tetanus vaccine 1978 HPV test 1989 PAP Smear 1989 Breast Cancer Share Decision Needed 1999 Breast Cancer screening 1999 Zoster vaccine (1 of 2) 2009 Advance Directive 2014 Covid-19 Vaccine (2022-24 season) 2023 Influenza (Flu) vaccine (1 o f 1 - Influenza standard series) 06/14/2024 Diabetes Screening (HgbA1C or Glucose) 05/18/2027 Procedures Procedure Name Priority Date/Time Associated Diagnosis Comments SCAN DOC: TELEMETRY STRIPS 05/18/2024 11:20 AM EDT ELECTROPHYSIOLOGY PROCEDURE Routine 05/18/2024 10:25 AM EDT Paroxysmal atrial fibrillation BLOOD GAS, POC Routine 05/18/2024 9:14 AM EDT BASIC METABOLIC PANEL Add-On 05/18/2024 6:28 AM EDT GREEN TUBE HOLD Routine 05/18/2024 6:28 AM EDT EXTRA TUBES Routine 05/18/2024 6:28 AM EDT CBC (WITH DIFF) STAT 05/18/2024 6:28 AM EDT EKG 12-LEAD Routine 05/18/2024 6:22 AM EDT Paroxysmal atrial fibrillation from Last 3 Months Results * Scan Doc: Telemetry Strips (05/18/2024 11:20 AM EDT) Narrative 05/18/2024 11:20 AM EDT Ordered by an unspecified provider. Scanning Provider MEDIA MGR SCAN EXT O RDR/RSLT * ELECTROPHYSIOLOGY PROCEDURE (05/18/2024 10:25 AM EDT) Anatomical Region Laterality Modality Other Narrative 05/19/2024 7:38 AM EDT Table formatting from the original result was not included. Images from the original result were not included. Atrial Fibrillation Pulsed Field Ablation: Electrophysiology Study, Transseptal Left Atrial Access, 3-Dimensional CT Rendering, Intracardiac Echo Imaging, 3-Dimensional Intracardiac Electroanatomic Mapping, Left Atrial Ablation Operators: ESME Grider.ChB, Monroe Cronin MD (fellow) Indication: Symptomatic atrial fibrillation Background: Peyton L Zeus OMALLEY is a 63 y.o. woman with increasing [...] arterial gas sample (O2 sat 99%). A Influitive RF Protrack Pigtail transeptal access wire (180cm, 0.035) [...] Values (ms) Intervals ?? Cycle length 622 [place] 180 QRS 83 QT 377 QTc ?? [...] need for PPI Addendum I was the television camera operator, present for the entire procedure and personally edited this note MARIEL CASTELLANOS MD Mariel Castellanos MD EP PROCEDURE ORDERAB LES * (ABNORMAL) BLOOD GAS, POC (05/18/2024 9:14 AM EDT) Sodium, POC 141 135 - 145 mmol/L 05/21/2024 11:25 AM EDT [facility] Potassium, POC 3.1(L) 3.5 - 5.0 mmol/L 05/21/2024 11:25 AM EDT [facility] pH, POC 7.38 7.35 - 7.45 05/21/2024 11:25 AM EDT [facility] Ionized Calcium, POC 1.18 1.15 - 1.33 mmol/L 05/21/2024 11:25 AM [facility] pCO2, POC 34(L) 35 - 45 mmHg 05/21/2024 11:25 AM EDT [facility] pO2, POC 185(H) 85 - 104 mmHg 05/21/2024 11:25 AM EDT [facility] Base Excess, POC -5.0(L) -3.0 - 3.0 mmol/L 05/21/2024 11:25 AM [facility] Hematocrit, POC 31.0(L) 35.7 - 45.8 %PCV 05/21/2024 11:25 AM [facility] Hemoglobin, POC 10.5(L) 11.7 - 15.5 g/dL 05/21/2024 11:25 AM [facility] Comment:The calculation of h emoglobin from hematocrit assumes a normal MCHC. Bicarbonate, POC 19.8(L) 20.0 - 26.0 mmol/L 05/21/2024 11:25 AM [facility] Carbon Dioxide, POC 21(L) 22 - 31 mmol/L 05/21/2024 11:25 AM T [facility] Blood VENOUS BLOOD SPECIMEN / Unknown 05/18/2024 9:14 AM EDT 05/21/2024 11:26 AM EDT Mariel Castellanos MD POINT OF CARE TEST O RDERABLES [facility] [place] [address] * Green Tube HOLD (05/18/2024 6:28 AM EDT) Green Hold Hold for Add-on 05/18/2024 8:01 AM [facility] Blood VENOUS BLOOD SPECIMEN / Unknown 05/18/2024 6:28 AM EDT 05/18/2024 7:00 AM EDT Mariel Castellanos MD CHEMISTRY ORDERABLES [facility] [place] [address] * (ABNORMAL) CBC (with Diff) (05/18/2024 6:28 AM EDT) White Blood Cell 7.54 4.00 - 9.50 x10(3)/mc L 05/18/2024 7:08 AM EDT [facility] Red Blood Cell 4.05 4.00 - 5.21 x10(6)/mc L 05/18/2024 7:08 AM EDT [facility] Hemoglobin 13.1 11.7 - 15.5 g/dL 05/18/2024 7:08 AM EDT [facility] Hematocrit 40.3 35.7 - 45.8 % 05/18/2024 7:08 AM EDT [facility] Mean Cell Volume 99.5(H) 82.6 - 94.4 fL 05/18/2024 7:08 AM [facility] Mean Cell Hemoglobin 32.3(H) 27.1 - 32.0 pg 05/18/2024 7:08 AM EDT [facility] Mean Cell Hemoglobin Concentration 32.5 31.7 - 35.0 g/dL 05/18/2024 7:08 AM EDT [facility] Platelet 313 145 - 357 x10(3)/mc L 05/18/2024 7:[facility] Mean Platelet Volume 8.7 7.6 - 12.9 fL 05/18/2024 7:08 AM [facility] RDW Standard Deviation 48.8(H) 37.0 - 46.0 fL 05/18/2024 7:08 AM EDT [facility] RDW coefficient of variation 13.2 11.5 - 14.1 % 05/18/2024 7:08 AM [facility] NRBC% auto 0.0 % 05/18/2024 7:08 AM [facility] NRBC Absolute 0.00 0.00 - 0.00 x10(3)/mc L 05/18/2024 7:08 AM [facility] Neutrophil % 48.9 % 05/18/2024 7:08 AM [facility] Neutrophil Absolute 3.69 1.70 - 6.10 x10(3)/mc L 05/18/2024 7:08 AM [facility] Lymph % 35.8 % 05/18/2024 7:08 AM [facility] Lymph Absolute 2.70 0.90 - 3.20 x10(3)/mc L 05/18/2024 7:08 AM [facility] Monocyte % 9.7 % 05/18/2024 7:08 AM [facility] Monocyte Absolute 0.73 0.30 - 0.90 x10(3)/mc L 05/18/2024 7:08 AM [facility] Eos % 4.4 % 05/18/2024 7:08 AM [facility] Eos Absolute 0.33 0.00 - 0.40 x10(3)/mc L 05/18/2024 7:08 AM [facility] Basophil % 0.9 % 05/18/2024 7:08 AM [facility] Baso Absolute 0.07 0.00 - 0.10 x10(3)/mc L 05/18/2024 7:08 AM [facility] Immature Gran % 0.3 % 7:08 AM [facility] Immature Gran Absolute 0.02 0.00 - 0.04 x10(3)/mc L 05/18/2024 7:08 AM [facility] Blood No Charge / Unknown 05/18/2024 6:28 AM EDT 05/18/2024 6:46 AM EDT Mariel Castellanos MD HEMATOLOGY ORDERABLE S [facility] [place] [address] * (ABNORMAL) Basic Metabolic Panel (05/18/2024 6:28 AM EDT) Pathologist [facility] Glucose 110 65 - 199 mg/dL 05/18/2024 9:11 AM EDT [facility] Blood Urea Nitrogen 7(L) 8 - 18 mg/dL 05/18/2024 9:11 AM [facility] Creatinine 0.86 0.70 - 1.20 mg/dL 05/18/2024 9:11 AM [facility] Sodium 143 135 - 145 mMol/L 05/18/2024 9:11 AM [facility] Potassium 4.5 3.5 - 5.0 mMol/L 05/18/2024 9:11 AM [facility] Chloride 107 98 - 107 mMol/L 05/18/2024 9:11 AM [facility] Carbon Dioxide 24 22 - 31 mMol/L 05/18/2024 9:11 AM [facility] Anion Gap 12 5 - 15 mMol/L 05/18/2024 9:11 AM [facility] Calcium 9.8 8.5 - 10.5 mg/dL 05/18/2024 9:11 AM [facility] Est Glomerular Filtration Rate - Female 76 mL/min/1. 73 m?? 05/18/2024 9:11 AM [facility] Comment: This patient's estimated GFR [...] Fasting Status No 05/18/2024 9:11 AM EDT [facility] Blood VENOUS BLOOD SPECIMEN / Unknown 05/18/2024 6:28 AM EDT 05/18/2024 7:00 AM EDT Mariel Castellanos MD CHEMISTRY ORDERABLES [facility] [place] [address] * EKG 12 Lead (05/18/2024 6:22 AM EDT) Ventricular rate 101 BPM MUSE SYSTEM Atrial Rate 101 BPM MUSE SYSTEM P-R Interval 154 ms MUSE SYSTEM QRS Duration 80 ms MUSE SYSTEM Q-T Interval 346 ms MUSE SYSTEM QTC Calculated (Bezet) 448 ms MUSE SYSTEM Calculated P Rickman 47 degrees MUSE SYSTEM Calculated R Rickman -28 degrees MUSE SYSTEM Calculated T Rickman 64 degrees MUSE SYSTEM INTERPRETATION Sinus tachycardia Low voltage QRS Poor R wave progression Borderline ECG No previous ECGs available I personally reviewed the tracing and edited the fellows interpretation Confirmed by fellow MD Galo Ashley [id number]) on 05/18/2024 3:34:11 PM Confirmed by MD Mark Jon ([id number]) on 05/19/2024 2:03:37 PM MUSE SYSTEM 05/18/2024 6:22 AM EDT 05/19/2024 2:03 PM EDT Mariel Castellanos MD ECG ORDERABLES MUSE SYSTEM from Last 3 Months Care Teams Muffler Installer Relationship Specialty Start Date End Date Nubia Mantilla, WINDOW/DISTRIBUTION CLERK [address] [place] [address] PCP - General Family Medicine 04/03/24
--- OUTSIDE RECORDS SUMMARY | 2024-05-21 22:54 | XMS_ITS | Encounter Summary ---
[place] [address] Care Team Providers Care Junior Php Developer Name Role Phone Nubia Mantilla Paige VARGAS Primary Care Provider [phone] Reason for Visit * Reason Onset Date Comments Pre Procedure Call 05/05/2024 Encounter Details Date Type Department Care Team (Late st Contact Info) Description 05/05/2024 Telephone Cardiology at [address] [phone] Tri Shipley, AMEYA Pre Procedure Call Social History Tobacco Use Types Packs/Day Years Used Date Smoking Tobacco: Never Smokeless Tobacco: Never Sex and Gender Information Value Date Recorded Sex Assigned at Not on file Gender Identity Not on file Sexual Orientation Not on file documented as of this encounter Miscellaneous Notes * Telephone Encounter - Tri Shipley RN - 05/05/2024 8:03 AM EDTSummary: Pre Procedure Call: Farapulse Atrial Fibrillation Ablation EP BASKET TURNER COORDINATION CHECKLIST Patient Name: Peyton Schulz MD Patient Performing Breeding Manager: Carlos Alberto Castellanos Referring Provider: Monroe Grey Date of Procedure: 05/18/24 Arrival Time/ Case Time: 6:00 am / 7:30 am Check In Location: Central Supply Tech Desk 4W Date Patient was Called: 05/05/24 Procedure: Farapulse Atrial Fibrillation Ablation Company: [employer] Type: Pulse Field Orders: Yes Lab Orders: Yes Anesthesia: GA Discharge Plan/Disposition: SAME DAY DISCHARGE (since ptis first case) Med Instructions: BB/CCB - hold diltiazem the AM of procedure Anticoag Type: Eliquis (apixaban) - began 1 month prior to procedure (04/21) Anticoag Instructions: Hold Eliquis the AM of procedure Imaging: no open CT times, VIVIEN scheduled on AM of procedure Contrast Allergy: N/A DM: N/A On Jardiance/Farxiga?: N/A ON GLP-1 Meds?: N.A (Ozempic, Wegovy, Trulicity, Mounjaro, Zepbound) - 7 days before , Rybelsus, Saxenda, Victoza, Byetta, Bydureon, Soliqua, Xultophy - the AM of procedure Coming from an assisted living facility?: No Any recent S/S of infection (fevers, on oral ABX)?: No Other Instructions: Clear liquids (water, apple juice, dov aj, black coffee/tea) OK up until 2 hrs prior to procedure, nothing to eat after midnight on day of procedure.Same Day will call 05/15. Will be going home same day (possible overnight stay) , understands that they will need school boat driver on day of discharge Notified pt that Castañeda catheter may be placed on day of procedure depending on type & duration of case. documented in this encounter Plan of Treatment Upcoming Encounters Date Type Department Care Team (Late st Contact Info) Description 07/08/2024 3:30 PM EDT Office Visit Cardiology at [address] [place] [phone] Jeyson Angel, [facility] [place] [address] documented as of this encounter Visit Diagnoses Not on filedocumented in this encounter Care Teams Junior Php Developer Relationship Specialty Start Date End Date Nubia Mantilla APRN [address] [place] [place] [address] PCP - General Family Medicine 04/03/24 documented as of this encounter
--- OUTSIDE RECORDS SUMMARY | 2024-05-21 22:54 | XMS_ITS | Encounter Summary ---
Author Organization [facility] [place] [address] Care Team Providers Care Medical Program Specialist Name Role Phone Katy Martinez MD Primary Care Provider [phone] Reason for Visit * Reason Comments Shortness of Breath Encounter Details Date Type Department Care Team (Late st Contact Info) Description 12/30/2014 11:00 AM EDT Procedure visit [facility] [address] [place] [phone] Jerome De La Torre Jr., MD [address] [place] [address] ALVARES (dyspnea on exertion) Social History Tobacco Use Types Packs/Day Years Used Date Smoking Tobacco: Never Assessed Sex and Gender Information Value Date Recorded Sex Assigned at Not on file Gender Identity Not on file Sexual Orientation Not on file documented as of this encounter Progress Notes * Jerome De La Torre Jr., MD - 12/30/2014 2:03 PM EDT ETT normal Consider trial of stopping amlodipine Also consider trial of Co Q-10 Discussed with patient and Dr. Martinez documented in this encounter Plan of Treatment Upcoming Encounters Date Type Department Care Team (Late st Contact Info) Description 07/08/2024 3:30 PM EDT Office Visit Cardiology at [place] [address] [place] [phone] Jeyson Angel PA [facility] [place] [address] documented as of this encounter Procedures Procedure Name Priority Date/Time Associated Diagnosis Comments STRESS TEST, EXERCISE (TREADMILL) Routine 12/30/2014 documented in this encounter Results * Stress Test, Exercise (Treadmill) (12/30/2014) Anatomical Region Laterality Modality Other Narrative 12/30/2014 Exercise Stress Test- Final Report ?? Peyton Schulz MD : 1960 [facility], [address] [place] [address] Primary Physician: ??KATY MARTINEZ MD ??Indication: dyspnea on exertion Date: 12/30/2014 Summary: Max Exercise: ??15:00, 3:00 ??Stage V ??Mike ?? 15 ?? METS Max HR: ? 185> 85 % PMR(140) Max BP: ??179/[address] change: ??none Reason for Termination: fatigue Impression: excellent exercise tolerance, normal HR and BP response to exercise, no arrhythmias or ischemia Details: Medication: on amlodipine Risk Factors: ??Denies all Resting EKG: NSR 89, normal ?Resting BP: 140/90 Exercise per Mike protocol Arrhythmias: none Recovery: ??BP ?? -> ?? 146/83 ?HR ?? -> 94 Arrhythmias: none Electronically signed: Jerome De La Torre Jr, MD [facility] Historical Provider CARDIAC SERVICES ORDERABLES documented in this encounter Visit Diagnoses Diagnosis ALVARES (dyspnea on exertion) Other dyspnea and respiratory abnormality documented in this encounter Care Teams Medical Program Specialist Relationship Specialty Start Date End Date Katy Martinez MD PCP - General 09/05/10 11/26/23 documented as of this encounter
--- OUTSIDE RECORDS SUMMARY | 2024-05-21 22:54 | XMS_ITS | Encounter Summary ---
Author Organization [facility] Address [address] [place] [address] Care Team Providers Care Local Sales Manager Name Role Phone Venus Morales MD Primary Care Provider [phone] Encounter Details Date Type Department Care Team (Late st Contact Info) Description 12/22/2009 Results Only [facility] Laboratory Services - [facility] ([facility] [address] [place], [place] [address] Venus Morales MD [address] [place] [address] Social History Tobacco Use Types Packs/Day Years Used Date Smoking Tobacco: Never Assessed Sex and Gender Information Value Date Recorded Sex Assigned at Not on file Gender Identity Not on file Sexual Orientation Not on file documented as of this encounter Plan of Treatment Not on file documented as of this encounter Procedures Procedure Name Priority Date/Time Associated Diagnosis Comments SURGICAL PATHOLOGY Routine 12/22/2009 0:00 EST documented in this encounter Results * SURGICAL PATHOLOGY (12/22/2009 0:00 EST) Pathology Report: SURGICAL PATHOLOGY REPORT ? Reports generated via electronic interface contain original data; ? however they are lacking the format of the original report. ? Caution should be taken when reading/interpreting unformatted reports. ? Name: ? SOLNIT, PEYTON L ? Accession #: ? [id number] ? : ? 1960 (Age: 49) ??F ? Collect Date: ? 12/22/2009 ? Location: ? [facility] ? Receive Date: ? 12/26/2009 ? Provider: FAY F MICHELLE MD ? Copy to: ? Final Pathologic Diagnosis: ? Skin of shoulder, right, punch biopsy: ? - Mild epidermal hyperplasia with dermal melanophages. See microscopic and comment. ? Comment: ? Despite deeper levels, there is no definitive evidence of a melanocytic ? proliferation. 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 dermal melanophages. ??(Dr. Brooks)/mms ? Microscopic Description: ? Sections consist of a punch biopsy of skin. ??There is compacted ? orthokeratosis overlying an epidermis which shows mild hyperplasia. ??There is an irregular pigment distribution along the basal zone which in foci is accentuated at the tips of the rete ridges. ??Within the dermis there is scattered ? melanophages and mild lymphomononuclear inflammation. ??Deeper levels have been ?? examined. ??/mms ? Document reviewed and electronically signed by: ? Joellen Brooks, MD ? Report ??Date: 12/28/2009 13:43 ? By the signature above, the attending physician certifies that he/she has ? personally conducted a gross and/or microscopic examination of the described ? specimens and rendered or confirmed the above diagnosis. ? Specimen(s) Received: ? 4.0 mm punch biopsy R shoulder ? Clinical History: ? 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 Gross Description: ? Received in formalin labelled Peyton Schulz and R shoulder is a punch ?? biopsy of l[place] skin measuring 0.4 cm in diameter and 0.4 cm in thickness. ??There is a central, dark brown macule measuring 0.2 cm in diameter. ??The specimen is ?? bisected and submitted entirely in one cassette. ??(Anny Ribeiro/angel ? End of Report ? [facility] 12/22/2009 12/26/2009 17: 03 EDT Venus Morales MD PATHOLOGY ORDERABLES [facility] [address] [place] [address] documented in this encounter Visit Diagnoses Not on filedocumented in this encounter Care Teams Local Sales Manager Relationship Specialty Start Date End Date Venus Morales MD [address] [place] [address] PCP - General 09/29/09 documented as of this encounter
--- OUTSIDE RECORDS SUMMARY | 2024-05-21 22:54 | XMS_ITS | Encounter Summary ---
Author Organization [facility] Address [facility] Jose [place] [address] Care Team Providers Care Building Construction Ironworker Name Role Phone Venus Morales MD Primary Care Provider [phone] Encounter Details Date Type Department Care Team (Late st Contact Info) Description 07/28/2020 Ancillary Procedure Radiology at [facility] [address] [place] [phone] Jud Casas MD [address] [place] [address] Social History Tobacco Use Types Packs/Day Years [...] 3:30 PM EDT Office Visit Cardiology at [address] [place] [address] Jeyson Angel PA [facility] [place] [place] [address] documented as of this encounter Procedures Procedure Name Priority Date/Time Associated Diagnosis Comments FILM LIBRARY STORAGE ONLY MR SPINE Routine 07/28/2020 12:00 AM EDT documented in this encounter Results * Film Library- Storage Only MR Spine (07/28/2020 12:00 AM EDT) Narrative RAD - 08/22/2020 5:33 PM EST This exam is auto-finalizing. It's purpose is for storage only. Jud Casas MD IMG FILM LIBRARY ORDERABLES [place], [place] documented in this encounter Visit Diagnoses Not on filedocumented in this encounter Care Teams Building Construction Ironworker Relationship Specialty Start Date End Date Venus Morales MD PCP - General 09/05/10 11/26/23 documented as of this encounter
--- OUTSIDE RECORDS SUMMARY | 2024-05-21 22:54 | XMS_ITS | Encounter Summary ---
Author Organization [facility] [place] [address] Care Team Providers Care Public Health Name Role Phone Nubia Mantilla ALICIA Primary Care Provider [phone] Reason for Visit * Auth/Cert (Routine) Specialty Diagnoses / Procedures Referred By Contac t Referred To Contact Diagnoses Paroxysmal atrial fibrillation Paroxysmal atrial fibrillation [I48.0] Procedures PRO COMPREHENSIVE EP EVAL ABLATION ATR FIB PULM VEIN ISOLATION PRO INTRACARD ELECTROPHYS 3-DIMENS MAPPING PRG STIM/PACING HEART POST IV DRUG INFU PRG INTRACARD ECHO, THER/DX INTERVENT ELECTROPHYSIOLOGY PROCEDURE TRANSESOPHAGEAL ECHO DURING CATH/EP PROCEDURE Mariel Johnson MD [facility] [place] [address] [facility] Referral ID Status Reason Start Date Expiration Date Visits Re quested Visits Authorized [id number] 1 1 Encounter Details Date Type Department Care Team (Latest Contact Info) Description 05/18/2024 6:04 AM EDT - 05/18/2024 1:55 PM EDT Hospital [place] [address] Mariel Johnson MD [facility] [place] [address] Paroxysmal atrial fibrillation Discharge Disposition: Home Social History Tobacco Use Types Packs/Day Years Used Date Smoking Tobacco: Never Smokeless Tobacco: Never Alcohol Use Standard Drinks/Week Comments Not Currently 0 (1 standard drink = 0.6 oz pur e alcohol) DH IPV Inpatient Questions Answer Date Recorded Does Anyone [...] were not included. Peyton Schulz MD 1960 [id number] Primary Care Physician Nubia Gibson Jose Rafael, NET MANAGER 05/18/24 Cardiology Electrophysiology History and Physical - Same Day History Peyton Schulz MD is here for elective EPS/Ablation They were seen in the EP clinic 04/03 From that visit '.. 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 She ended up at [facility], where she was given IV diltiazem, spontaneously [...] On apixaban - no missed doses Low [id number] score. No need for VIVIEN We discussed risks of the procedure, consent obtained MARIEL JOHNSON MD 05/18/2024 Pager [phone] Plan 1) Anticipate PFA ablation for AF [...] 3:30 PM EDT Office Visit Cardiology at [address] [phone] Jeyson Angel PA [facility] [place] [address] documented as of this encounter Procedures Procedure [...] Electroanatomic Mapping, Left Atrial Ablation Operators: ESME Grider.Yanet, Monroe Cronin MD (fellow) Indication: Symptomatic atrial [...] arterial gas sample (O2 sat 99%). A ClairMail Protrack Pigtail transeptal access wire (180cm, 0.035) [...] a voltage map(s) were created using the PentKabbagey mapping catheter. There were four main pulmonary [...] After completion of the ablation lesions, the [employer] system was used to perform a voltage map of the atrium and to confirm pulmonary vein isolation. ??Additional lesions were delivered as summarized above with excellent results on repeat mapping. See the image below for full details. The catheters were now returned to the right atrium. Post-ablation Assessment and EPS: Parameters Values (ms) Intervals ?? Cycle length 622 KS 180 QRS 83 QT 377 QTc ?? [...] need for PPI Addendum I was the spray painting machine operator, present for the entire procedure and personally edited this note MARIEL JOHNSON MD Mariel Johnson MD EP PROCEDURE ORDERAB LES * (ABNORMAL) BLOOD GAS, POC (05/18/2024 9:14 AM EDT) Sodium, POC 141 135 - 145 mmol/L 05/21/2024 11:25 AM EDT [facility] Potassium, POC 3.1(L) 3.5 - 5.0 mmol/L 05/21/2024 11:25 AM EDT [facility] pH, POC 7.38 7.35 - 7.45 05/21/2024 11:25 AM EDT [facility] Ionized Calcium, POC 1.18 1.15 - 1.33 mmol/L 05/21/2024 11:25 AM EDT [facility] pCO2, POC 34(L) 35 - 45 mmHg 05/21/2024 11:25 AM EDT [facility] pO2, POC 185(H) 85 - 104 mmHg 05/21/2024 11:25 AM EDT [facility] Base Excess, POC -5.0(L) -3.0 - 3.0 mmol/L 05/21/2024 11:25 AM EDT [facility] Hematocrit, POC 31.0(L) 35.7 - 45.8 %PCV 05/21/2024 11:25 AM EDT [facility] Hemoglobin, POC 10.5(L) 11.7 - 15.5 g/dL 05/21/2024 11:25 AM EDT [facility] Comment:The calculation of h emoglobin from hematocrit assumes a normal MCHC. Bicarbonate, POC 19.8(L) 20.0 - 26.0 mmol/L 05/21/2024 11:25 AM EDT [facility] Carbon Dioxide, POC 21(L) 22 - 31 mmol/L 05/21/2024 11:25 AM EDT [facility] Blood VENOUS BLOOD SPECIMEN / Unknown 05/18/2024 9:14 AM EDT 05/21/2024 11:26 AM EDT Mariel Johnson MD POINT OF CARE TEST O RDERABLES Performing Organization Address City/State/[facility] Co de Phone Number [facility] [place] [address] * (ABNORMAL) Basic Metabolic Panel (05/18/2024 6:28 AM EDT) Glucose 110 65 - 199 mg/dL 05/18/2024 9:11 AM EDT [facility] Blood Urea Nitrogen 7(L) 8 - 18 mg/dL 05/18/2024 9:11 AM EDT [facility] Creatinine 0.86 0.70 - 1.20 mg/dL 05/18/2024 9:11 AM EDT [facility] Sodium 143 135 - 145 mMol/L 05/18/2024 9:11 AM EDT [facility] Potassium 4.5 3.5 - 5.0 mMol/L 05/18/2024 9:11 AM EDT [facility] Chloride 107 98 - 107 mMol/L 05/18/2024 9:11 AM EDT [facility] Carbon Dioxide 24 22 - 31 mMol/L 05/18/2024 9:11 AM EDT [facility] Anion Gap 12 5 - 15 mMol/L 05/18/2024 9:11 AM EDT [facility] Calcium 9.8 8.5 - 10.5 mg/dL 05/18/2024 9:11 AM EDT [facility] Est Glomerular Filtration Rate - Female 76 mL/min/1. 73 m?? 05/18/2024 9:11 AM EDT [facility] Comment: This patient's estimated GFR [...] Fasting Status No 05/18/2024 9:11 AM EDT [facility] Blood VENOUS BLOOD SPECIMEN / Unknown 05/18/2024 6:28 AM EDT 05/18/2024 7:00 AM EDT Mariel Johnson MD CHEMISTRY ORDERABLES Performing Organization Address City/[facility] [address]/ZIP Co de Phone Number [facility] [place] [address] * Green Tube HOLD (05/18/2024 6:28 AM EDT) Green Hold Hold for Add-on 05/18/2024 8:01 AM EDT [facility] Blood VENOUS BLOOD SPECIMEN / Unknown 05/18/2024 6:28 AM EDT 05/18/2024 7:00 AM EDT Mariel Johnson MD CHEMISTRY ORDERABLES [facility] [place] [address] * (ABNORMAL) CBC (with Diff) (05/18/2024 6:28 AM EDT) White Blood Cell 7.54 4.00 - 9.50 x10(3)/mc L 05/18/2024 7:08 AM [facility] Red Blood Cell 4.05 4.00 - 5.21 x10(6)/mc L 05/18/2024 7:08 AM [facility] Hemoglobin 13.1 11.7 - 15.5 g/dL 05/18/2024 7:08 AM [facility] Hematocrit 40.3 35.7 - 45.8 % 05/18/2024 7:08 AM [facility] Mean Cell Volume 99.5(H) 82.6 - 94.4 fL 05/18/2024 7:08 AM [facility] Mean Cell Hemoglobin 32.3(H) 27.1 - 32.0 pg 05/18/2024 7:08 AM [facility] Mean Cell Hemoglobin Concentration 32.5 31.7 - 35.0 g/dL 05/18/2024 7:08 AM [facility] Platelet 313 145 - 357 x10(3)/mc L 05/18/2024 7:08 AM [facility] Mean Platelet Volume 8.7 7.6 - 12.9 fL 05/18/2024 7:08 AM [facility] RDW Standard Deviation 48.8(H) 37.0 - 46.0 fL 05/18/2024 7:08 AM [facility] RDW coefficient of variation 13.2 11.5 - 14.1 % 05/18/2024 7:08 AM [facility] NRBC% auto 0.0 % 05/18/2024 7:08 AM [facility] NRBC Absolute 0.00 0.00 - 0.00 x10(3)/mc L 05/18/2024 7:08 AM EDT [facility] Neutrophil % 48.9 % 05/18/2024 7:08 AM EDT [facility] Neutrophil Absolute 3.69 1.70 - 6.10 x10(3)/mc L 05/18/2024 7:08 AM EDT [facility] Lymph % 35.8 % 05/18/2024 7:08 AM EDT [facility] Lymph Absolute 2.70 0.90 - 3.20 x10(3)/mc L 05/18/2024 7:08 AM EDT [facility] Monocyte % 9.7 % 05/18/2024 7:08 AM EDT [facility] Monocyte Absolute 0.73 0.30 - 0.90 x10(3)/mc L 05/18/2024 7:08 AM EDT [facility] Eos % 4.4 % 05/18/2024 7:08 AM EDT [facility] Eos Absolute 0.33 0.00 - 0.40 x10(3)/mc L 05/18/2024 7:08 AM EDT [facility] Basophil % 0.9 % 05/18/2024 7:08 AM EDT [facility] Baso Absolute 0.07 0.00 - 0.10 x10(3)/mc L 05/18/2024 7:08 AM EDT [facility] Immature Gran % 0.3 % 7:08 AM EDT [facility] Immature Gran Absolute 0.02 0.00 - 0.04 x10(3)/mc L 05/18/2024 7:08 AM EDT [facility] Blood No Charge / Unknown 05/18/2024 6:28 AM EDT 05/18/2024 6:46 AM EDT Mariel Johnson MD HEMATOLOGY ORDERABLE S [facility] [place] [address] * EKG 12 Lead (05/18/2024 6:22 AM EDT) Ventricular rate 101 BPM MUSE SYSTEM Atrial Rate 101 BPM MUSE SYSTEM P-R Interval 154 ms MUSE SYSTEM QRS Duration 80 ms MUSE SYSTEM Q-T Interval 346 ms MUSE SYSTEM QTC Calculated (Bezet) 448 ms MUSE SYSTEM Calculated P [place] 47 degrees MUSE SYSTEM Calculated R [place] -28 degrees MUSE SYSTEM Calculated T [place] 64 degrees MUSE SYSTEM INTERPRETATION Sinus tachycardia Low voltage QRS Poor R wave progression Borderline ECG No previous ECGs available I personally reviewed the tracing and edited the fellows interpretation Confirmed by fellow MD Iraj, Kary ([id number]) on 05/18/2024 3:34:11 PM Confirmed by MD Jas, Jesus ([id number]) on 05/19/2024 2:03:37 PM MUSE SYSTEM [...] Scheduled Medication Order 05/16/2024 05/17/2024 05/18/2024 acetaminophen (irmev) (1,000 mg/100 mL) infusion 1,000 mg 1,000 [...] On Sat05/18/24 at 0945, EP (Intra-Procedure), Routine 819 (Given - Provid er: Laura Bragg, RN) lidocaine (Xylocaine) (20 mg/mL) 2% injection 400 mg (COMPLETED) 400 mg (20 mL), Subcutaneous, ONCE, 1 dose, On Sat05/18/24 at 0945, EP (Intra-Procedure), Routine 819 (Given - Provid er: Laura Bragg RN) [...] Candida Shipley RN)0737 (Paused - Provider: Fam Fishmna CRNA - Comment: Switch to gravity)0738 (New [...] RN) documented in this encounter Care Teams Public Health Relationship Specialty Start Date End Date Nubia Mantilla, NET MANAGER [address] [facility] [place] [address] PCP - General Family Medicine 04/03/24 documented as of this encounter
--- OUTSIDE RECORDS SUMMARY | 2024-05-21 22:54 | XMS_ITS | Encounter Summary ---
Author Organization [facility] [place] [address] Care Team Providers Care Snaker Driving Horses Name Role Phone Nubia Mantilla APRN Primary Care Provider [phone] Encounter Details Date Type Department Care Team (Late st Contact Info) Description 04/21/2024 Orders Only Cardiology at [address] [address] Tri Shipley, RN PAF (paroxysmal atrial fibrillation) Social History Tobacco [...] 3:30 PM EDT Office Visit Cardiology at [address] [phone] Jeyson Angel, [facility] [place] [address] documented as of this encounter Visit Diagnoses Diagnosis PAF (paroxysmal atrial fibrillation) Atrial fibrillation documented in this encounter Care Teams Snaker Driving Horses Relationship Specialty Start Date End Date Nubia Mantilla APRN [facility] [place] [address] PCP - General Family Medicine 04/03/24 documented as of this encounter
--- OUTSIDE RECORDS SUMMARY | 2024-05-21 22:54 | XMS_ITS | Clinical Summary ---
Author Organization [facility] Address [address] [place] [address] Care Team Providers Care Identity Management Consultant Name Role Phone Venus Morales MD Primary Care Provider [phone] Social History Tobacco Use Types Packs/Day Years Used Date Smoking Tobacco: Never Assessed Sex and Gender Information Value Date Recorded Sex Assigned at Not on file Gender Identity Not on file Sexual Orientation Not on file Plan of Treatment Health Maintenance Due Date Last Done Comments RSV Immunization ( o r 60+ Years) (1 - 1-dose 60+ series) 2019 COVID-19 Vaccine ( season) 2023 Hepatitis C Screen Completed 11/21/2021 Procedures Procedure Name Priority Date/Time Associated Diagnosis Comments HEPATITIS C AB W REFLEX TO HCV RNA BY PCR Routine 11/21/2021 12:47 EST from Last 3 Months or Most Recently Relevant to Health Maintenance Results * HEPATITIS C AB W REFLEX TO HCV RNA BY PCR (11/21/2021 12:47 EST) Hep C Antibody Negative Negative 11/23/2021 10:44 EST [facility] Blood VENOUS BLOOD / Unknown 11/21/2021 12:47 EST 11/22/2021 20:14 EST Provider Outr Resulting Lab CHEMISTRY & BLOOD GAS ORDERABLES [facility] [address] [place] [address] from Last 3 Months or Most Recently Relevant to Health Maintenance Care Teams Identity Management Consultant Relationship Specialty Start Date End Date Venus Morales MD [address] [place] [address] PCP - General 09/29/09
--- OUTSIDE RECORDS SUMMARY | 2024-05-21 22:54 | XMS_ITS | Encounter Summary ---
Author Organization [facility] Address [address] [place] [address] Care Team Providers Care Moving Worker Name Role Phone Unavailable Primary Care Provider Unavailabl e Encounter Details Date Type Department Care Team (Late st Contact Info) Description 09/22/2009 Orders Only [facility] Laboratory Services - [facility] ([facility]) [address] [place] [address] Katy Martinez MD [address] [place] [address] Social History Tobacco Use Types Packs/Day Years Used Date Smoking Tobacco: Never Assessed Sex and Gender Information Value Date Recorded Sex Assigned at Not on file Gender Identity Not on file Sexual Orientation Not on file documented as of this encounter Plan of Treatment Not on file documented as of this encounter Procedures Procedure Name Priority Date/Time Associated Diagnosis Comments CYTOPATHOLOGY Routine 09/22/2009 0:00 EST documented in this encounter Results * CYTOPATHOLOGY (09/22/2009 0:00 EST) Pathology Report: CYTOPATHOLOGY REPORT ? Reports generated via electronic interface contain original data; ? however they are lacking the format of the original report. ? Caution should be taken when reading/interpreti ng unformatted reports. ? Name: ? PEYTON SCHULZ ? Accession #: ? [id number] ? : ? 1960 (Age: 48) ??F ?Collect Date: ? 09/22/2009 ? Location: ? [facility] ? Receive Date: ? 09/26/2009 ? Provider: ?KATY MARTINEZ MD ? Copy to: ? Specimen/Source: ?Pap Test, Cervix, ThinPrep Imaging System with manual ?? evaluation ? Last Menstrual Period: ? Other: ? HPVA - HPV testing requested if ASC-US on the current ThinPrep Pap test. ? SPECIMEN ADEQUACY ? Unsatisfactory for Evaluation, ? - insufficient numbers of squamous epithelial cells (less than 10% of expected ?? cellularity) ? GENERAL CATEGORIZATION ? Specimen processed and examined, but unsatisfactory for evaluation of ? epithelial abnormality. ? Recommend repeat Pap test or further follow up, as clinically indicated. ? Document reviewed and electronically signed by: ? Shagufta Saleemg, CT(ASCP) ? Report Date: ??09/28/2009 15:22 ? End of Report ? [facility] 09/22/2009 09/26/2009 Katy Martinez MD PATHOLOGY ORDERABLES [facility] [address] [place] [address] documented in this encounter Visit Diagnoses Not on filedocumented in this encounter
--- OUTSIDE RECORDS SUMMARY | 2024-05-21 22:54 | XMS_ITS | Encounter Summary ---
Author Organization [facility] [place] [address] Care Team Providers Care Oracle Bpm Consultant Name Role Phone Nubia Mantilla APRN Primary Care Provider [phone] Encounter Details Date Type Department Care Team (Latest Contact Info) Description 04/03/2024 Travel Social History Tobacco Use Types Packs/Day Years [...] 3:30 PM EDT Office Visit Cardiology at [address] [phone] Jeyson Angel, [facility] [address] documented as of this encounter Visit Diagnoses Not on filedocumented in this encounter Care Teams Oracle Bpm Consultant Relationship Specialty Start Date End Date Nubia Mantilla APRN [address] [place] [address] [place] [address] PCP - General Family Medicine 04/03/24 documented as of this encounter
--- OUTSIDE RECORDS SUMMARY | 2024-05-21 22:54 | XMS_ITS | Encounter Summary ---
Author Organization [facility] [place] [address] Care Team Providers Care Manager Pacu Name Role Phone Nubia Mantilla APRN Primary Care Provider [phone] Reason for Visit * Auth/Cert (Routine) Specialty Diagnoses / Procedures Referred By Contac t Referred To Contact Diagnoses Paroxysmal atrial fibrillation Paroxysmal atrial fibrillation [I48.0] Procedures PRO COMPREHENSIVE EP EVAL ABLATION ATR FIB PULM VEIN ISOLATION PRO INTRACARD ELECTROPHYS 3-DIMENS MAPPING PRG STIM/PACING HEART POST IV DRUG INFU PRG INTRACARD ECHO, THER/DX INTERVENT ELECTROPHYSIOLOGY PROCEDURE TRANSESOPHAGEAL ECHO DURING CATH/EP PROCEDURE Carlos Alberto Castellanos MD [facility] [place] [address] [facility] Referral ID Status Reason Start Date Expiration Date Visits Re quested Visits Authorized [id number] 1 1 Encounter Details Date Type Department Care Team (Late st Contact Info) Description 05/18/2024 7:38 AM EDT Anesthesia Event [place]rophys[place] [address] Eedn Lockett MD [facility] [place] [address] Jonatan Perales Anesthesia Record Procedure Summary Procedure Name Responsible Anesthesiologist Anesthesia Start Time Anesthesia Stop Time ELECTROPHYSIOLOGY PROCEDURE Eden Lockett MD 05/18/24 0738 05/18/24 1113 Events Date Time Event Comment 05/18/2024 0638 0738 AN Verify 0738 Start 0738 An Start Data 0800 An Induction 0802 An Intubation 0808 Anesthesia Ready 1058 Extubation/LMA Out 1102 an stop data 1113 Recovery or ICU Handoff Sury ent care was transferred to the destination unit staff after review of the patient's medical history, current anesthetic/surgical status and plan, according to the Provider Handoff Checklist. 1113 Stop Meds Name Total lidocaine IV 50 mg propofoL 200 mg rocuronium 80 mg PHENYLephrine 240 mcg ondansetron 8 mg dexAMETHasone 8 mg glycopyrrolate 0.2 mg propofol INF 2,112 mg heparin 21,000 Units heparin INF 6,998.37 Units PHENYLephrine INF 2,260 mcg dexmedeTOMIDine 4 mcg/mL 16 mcg protamine 40 mg sugammadex 300 mg lactated ringers infusion 1,500 mL * Agents Name O2 * Blood No blood administrations on file. Lines, Drains, and Airways Type Details Placement Removal PIV 05/18/24; 0638; [id number] catheter system; 3/4 in length, 18 gauge; median cubital vein (antecubital fossa), left; Candida Shipley RN; tolerated well, intradermal injection, distraction; 0; 05/18/24; 1329 05/18/24 0638 by Candida Shipley RN 05/18/24 1329 by Margaux Marie, RN Arterial Line 05/18/24; 0806; radi al artery, right; 20 gauge; Anatomical Landmarks; Poewll; Sterile Prep, Sterile Gloves; 05/18/24; 1213 05/18/24 0806 by Fam Fishman CRNA 05/18/24 1213 by Shelby Mcadams, RN ETT Mask Ventilation: Ea sy (1); ETT Type: Cuffed, Oral; ETT Size: 7 mm; Mac Blade: 4; Notes: Asleep, Pre-O2; Attempts: 1; Laryngoscopy Grade: 1; ETT Placement Verified By: Auscultation, Capnometry, Visual; Secured at Teeth: 22 cm; Inserted by: Sravanthi; Removal Date: 05/18/24; Removal Time: 1058 05/18/24 0813 by Fam Fishman CRNA 05/18/24 1058 by Fam Fishman CRNA PIV 05/18/24; 0816; 18 g auge; metacarpal vein (top of hand), right; Powell; 05/18/24; 1329 05/18/24 0816 by Fam Fishman CRNA 05/18/24 1329 by Margaux Marie RN LDA Cath/EP Sheath 05/18/24; 0825; 9 Fr ench (Fr); Left, Proximal, Anterior; Femoral; Venous 05/18/24 0825 by Laura Bragg RN 05/18/24 1038 by Laura Bragg RN LDA Cath/EP Sheath 05/18/24; 0828; 7 Fr ench (Fr); Left, Proximal, Anterior; Femoral; Venous 05/18/24 0828 by Laura Bragg RN 05/18/24 1038 by Laura Bragg RN LDA Cath/EP Sheath 05/18/24; 0927; 831 Sami (Fr); Proximal, Right, Anterior; Femoral; Venous 05/18/24 0927 by Laura Bragg RN 05/18/24 1038 by Laura Bragg RN documented in this encounter Social History Tobacco Use Types Packs/Day Years Used Date Smoking Tobacco: Never Smokeless Tobacco: Never Alcohol Use Standard Drinks/Week Comments Not Currently 0 (1 standard drink = 0.6 oz pur e alcohol) IPV Inpatient Questions Answer Date Recorded Does [...] on file documented as of this encounter OR Notes * Anesthesia Postprocedure Evaluation - Eden Lockett MD - 05/18/2024 2:32 PM EDT Department of Anesthesiology Post-procedure Note Patient: 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 Wellington 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 MD Procedure Summary Date: 05/18/24 Room / Location: EP B-LAB ROOM 4 / [facility] EP LABS Anesthesia Start: 737 Anesthesia Stop: 1113 Procedures: ELECTROPHYSIOLOGY PROCEDURE TRANSESOPHAGEAL ECHO DURING CATH/EP PROCEDURE Diagnosis: Paroxysmal atrial fibrillation (Paroxysmal atrial fibrillation [I48.0]) Providers: Carlos Alberto Castellanos MD; Daniele Gruber MD Responsible Provider: Eden Lockett MD Anesthesia Type: general ASA Status: 2 All Anesthesia Providers: Anesthesiologist: Eden Lockett MD OSTEOPATHIC RESIDENT: Fam Fishman CRNA Vitals Value Taken Time BP 129/95 05/18/24 1300 Temp 37.1 ??C (98.8 ??F) 05/18/24 1212 Pulse 98 05/18/24 1314 Resp 13 05/18/24 1314 SpO2 93 % 05/18/24 1314 Pain Level 0 05/18/24 1212 Vitals shown include unfiled device data. 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 female. Procedure(s): ELECTROPHYSIOLOGY PROCEDURE TRANSESOPHAGEAL ECHO DURING CATH/EP PROCEDURE Patient Active Problem List Diagnosis Date Noted ??? PAF (paroxysmal atrial fibrillation) 12/13/2023 ??? Asthma 12/13/2023 ??? Gastroesophageal reflux 12/13/2023 ??? Obstructive sleep apnea 12/13/2023 ??? Hypothyroidism 12/13/2023 No past medical history on file. No past surgical history on file. Social History Tobacco Use ??? Smoking status: Never ??? Smokeless tobacco: Never Substance Use Topics ??? Alcohol use: Not on file Social History Substance and Sexual Activity Drug Use Not on file Allergies Allergen Reactions ??? Nsaids (Non-Steroidal Anti-Inflammatory Drug) CIS - Anaphylaxis ??? Narcotic Zip Bag [Misc. Devices] Severe dizziness - per pt I was so dizzy (spinning) that I couldn't even sit up for about 10 hours ??? Opioids - Morphine Analogues Severe dizziness - per pt I was so dizzy (spinning) that I couldn't even sit up for about 10 hours Medications: MAR and/or home medications have been reviewed. Physical Exam: Preprocedure Vitals Current as of 05/17/24 1657 No BP, pulse, respiration, SpO2, or temperature recorded. Height: 162.6 cm (5' 4) (04/03/24) Weight: 82.6 kg (182 lb) (04/03/24) BMI: 31.24 IBW: 54.7 kg (120 lb 10.7 oz) Airway Assessment: Mallampati: II TM distance: >3 FB Neck ROM: full Cardiovascular Assessment: Rhythm: regular Rate: normal Pulmonary Assessment: pulmonary exam normal Dental Assessment: - normal exam Comment: Small front upper teeth. 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 She is on Eliquis. LVEF: TTE, January 2023 unremarkable January 2023, Zio patch, normal sinus rhythm, no atrial fibrillation Sleep apnea: NASRA - CPAP for 10 years Allergies reviewed. Opioids side effects are severe. She prefers a total opioid free anesthetic. Wediscussed alternatives and titration. Meds reviewed. On apixaban, diltiazem. Stress Test 2016 Negative for ischemia. Normal LV function and normal valve function. No labs on file. Assessment and Plan 63 yo female ASA 2 for GA-ETT, plus TIVA Standard ASA monitors plus arterial line Risk and benefits discussed with patient and family members. Discussion regarding NASRA and treatmentas well as PONV and pain management post procedure. Blood transfusions were discussed but unlikely to occur. The patient was informed of the risks, benefits and alternatives of anesthesia. These risks included, but were not limited to, post-operative nausea and/or vomiting, pain, sore throat, dental/lip trauma, and other rare but serious complications such as major organ damage, awareness, severe allergicreactions, position-related nerve injuries, and need blood transfusions. Patient understood; all questions were sought, answered and the patient agreed to proceed. Consent was signed and placed in chart. Region - Other Informed Consent: Anesthetic plan and risks discussed with patient. Use of blood products discussed with patient who consented to blood products. Plan discussed with OSTEOPATHIC RESIDENT. Anesthesia Screening documented in this encounter Plan of Treatment Upcoming Encounters Date Type Department Care Team (Late st Contact Info) Description 07/08/2024 3:30 PM EDT Office Visit Cardiology at [address] [place] [address] Jeyson Angel PA [facility] DR [facility] [facility] [place] [address] documented as of this encounter Visit Diagnoses Not on filedocumented in this encounter Administered Medications Inactive Administered Medications - up to 3 most recent administrations Medication Order MAR Action Action Date Dose Rate Site dexAMETHasone (Decadron) injection Intravenous, PRN, Starting on Sat05/18/24 at 0806, Until Sat05/18/24 at 1113, Anesthesia Intra-op, Routine Given 05/18/2024 8:06 AM EDT 8 mg dexmedeTOMIDine (Precedex) (4 mcg/mL) bolus injection (Anesthsia) Intravenous, PRN, Starting on Sat05/18/24 at 1025, Until Sat05/18/24 at 1113, Anesthesia Intra-op, Routine Given 05/18/2024 10:40 AM EDT 8 mcg Given 05/18/2024 10:25 AM EDT 8 mcg glycopyrrolate (Robinul) (0.2 mg/mL) multi-dose injection Intravenous, PRN, Starting on Sat05/18/24 at 0920, Until Sat05/18/24 at 1113, Anesthesia Intra-op, Routine Given 05/18/2024 9:20 AM EDT 0.2 mg heparin (porcine) (1,000 units/mL) injection Intravenous, PRN, Starting on Sat05/18/24 at 0827, Until Sat05/18/24 at 1113, Anesthesia Intra-op, Routine Given 05/18/2024 9:14 AM EDT 1,000 Units Given 05/18/2024 8:58 AM EDT 5,000 Units Given 05/18/2024 8:41 AM EDT 5,000 Units heparin (porcine) 50 units/mL in dextrose 5% 500 mL infusion Intravenous, CONTINUOUS PRN, Starting on Sat05/18/24 at 0827, Until Sat05/18/24 at 1113, Anesthesia Intra-op, Routine Rate/Dose Change 05/18/2024 8:41 AM EDT 3,999 Units/hr 79.98 mL/hr New Bag 05/18/2024 8:27 AM EDT 2,000 Units/hr 40 mL/hr lactated ringers infusion 1,000 mL, at 100 mL/hr, Intravenous, CONTINUOUS, Starting on Sat05/18/24 at 0630, Until Sat05/18/24 at 1354, Day of Surgery (Day of Procedure) New Bag 05/18/2024 8:58 AM EDT New Bag 05/18/2024 7:38 AM EDT New Bag 05/18/2024 6:38 AM EDT 1,000 mLs 100 mL/hr lidocaine (pf) (Xylocaine) (20 mg/mL) 2% injection syringe Intravenous, PRN, Starting on Sat05/18/24 at 0800, Until Sat05/18/24 at 1113, Anesthesia Intra-op, Routine Given 05/18/2024 8:00 AM EDT 50 mg ondansetron (pf) (Zofran) (2 mg/mL) injection Intravenous, PRN, Starting on Sat05/18/24 at 1027, Until Sat05/18/24 at 1113, Anesthesia Intra-op, Routine Given 05/18/2024 10:27 AM EDT 8 mg PHENYLephrine (Dalton-Synephrine) (80 mcg/mL) in sodium chloride 0.9% 250 mL infusion Intravenous, CONTINUOUS PRN, Starting on Sat05/18/24 at 0833, Until Sat05/18/24 at 1113, Anesthesia Intra-op, Routine Rate/Dose Change 05/18/2024 9:44 AM EDT 10 mcg/min 7.5 mL/hr Rate/Dose Change 05/18/2024 9:15 AM EDT 20 mcg/min 15 mL/h r New Bag 05/18/2024 8:33 AM EDT 30 mcg/min 22.5 mL/hr PHENYLephrine in NS (PF) (DALTON-SYNEPHRINE) 0.8 mg/10 mL (80 mcg/mL) multi-dose injection Syringe Intravenous, PRN, Starting on Sat05/18/24 at 0819, Until Sat05/18/24 at 1113, Anesthesia Intra-op, Routine Given 05/18/2024 8:32 AM EDT 80 mcg Given 05/18/2024 8:19 AM EDT 80 mcg Given 05/18/2024 8:15 AM EDT 80 mcg propofoL (Diprivan) (10 mg/mL) infusion Intravenous, CONTINUOUS PRN, Starting on Sat05/18/24 at 0800, Until Sat05/18/24 at 1113, Anesthesia Intra-op, Routine Rate/Dose Change 05/18/2024 10:22 AM EDT 100 mcg/kg/min 48 mL/hr New Bag 05/18/2024 8:00 AM EDT 150 mcg/kg/min 72 mL/hr propofoL (Diprivan) 10 mg/mL bolus injection (Anesthesia) Intravenous, PRN, Starting on Sat05/18/24 at 0800, Until Sat05/18/24 at 1113, Anesthesia Intra-op Given 05/18/2024 8:00 AM EDT 200 mg protamine (10 mg/mL) injection Intravenous, PRN, Starting on Sat05/18/24 at 1028, Until Sat05/18/24 at 1113, Anesthesia Intra-op, Routine Given 05/18/2024 10:28 AM EDT 40 mg rocuronium (Zemuron) (10 mg/mL) multi-dose injection Intravenous, PRN, Starting on Sat05/18/24 at 0800, Until Sat05/18/24 at 1113, Anesthesia Intra-op, Routine Given 05/18/2024 8:00 AM EDT 80 mg sugammadex (Bridion) 100 mg/mL injection Intravenous, PRN, Starting on Sat05/18/24 at 1046, Until Sat05/18/24 at 1113, Anesthesia Intra-op, Routine Given 05/18/2024 10:55 AM EDT 100 mg Given 05/18/2024 10:46 AM EDT 200 mg documented in this encounter Care Teams Manager Pacu Relationship Specialty Start Date End Date Nubia Mantilla, DIRECTOR [employer] [address] [place] [address] PCP - General Family Medicine 04/03/24 documented as of this encounter
--- OUTSIDE RECORDS SUMMARY | 2024-05-21 22:54 | XMS_ITS | Encounter Summary ---
[place] [address] Care Team Providers Care Otter Trawler Boatswain Name Role Phone Jose Rafael, Nubia Gibson APRN Primary Care Provider [phone] Reason for Referral * Diagnostic Test (Routine) - New Request Specialty Diagnoses / Procedures Referred By Contac t Referred To Contact Radiology Diagnoses Paroxysmal atrial fibrillation Procedures CT Cardiac for Morphology & Function Carlos Alberto Castellanos MD [facility] [place] [address] [facility] [place] [address] Referral ID Status Reason Start Date Expiration Date Visits Requested Visits Authorized [id number] New Request Specialty Service Requested 04/03/2024 10/03/2025 1 1 * Diagnostic Test (Routine) - Authorized Specialty Diagnoses / Procedures Referred By Contac t Referred To Contact Cardiology Diagnoses Paroxysmal atrial fibrillation Procedures Transesophageal Echocardiogram (VIVIEN) Carlos Alberto Castellanos MD [facility] [place] [address] [facility] [place] [address] Referral ID Status Reason Start Date Expiration Date Visits Requested Visits Authorized [id number] Authorized Specialty Service Requested 04/03/2024 04/03/2025 1 1 Reason for Visit * Consultation (Urgent) - Closed Specialty Diagnoses / Procedures Referred By Contact Referred To Contact Electrophysiology / Cardiology Diagnoses PAF (paroxysmal atrial fibrillation) paf Monroe Grey MD [facility] [place] [address] Carlos Alberto Castellanos MD [facility] [place] [address] Referral ID Status Reason Start Date Expiration Date V isits Requested Visits Authorized [id number] Closed Consult, Test & Treat PCP Updated and/or Approved 11/15/2023 11/14/2024 1 1 Encounter Details Date Type Department Care Team (Latest Contact Info) Description 04/03/2024 10:40 AM EDT Office Visit Cardiology at [place] [phone] Carlos Alberto Castellanos MD [facility] [place] [address] group home current use of antiarrhythmic drug; Paroxysmal atrial fibrillation Social History Tobacco Use Types Packs/Day Years Used Date Smoking Tobacco: Never Smokeless Tobacco: Never Tobacco Cessation:Counseling Given: Not Answered Sex and Gender Information Value Date Recorded Sex Assigned at Not on file Gender Identity Not on file Sexual Orientation Not on file documented as of this encounter Last Filed Vital Signs Vital Sign Reading Time Taken Comments Blood Pressure 123/88 04/03/2024 10:51 AM EDT Pulse 91 04/03/2024 10:51 AM EDT Temperature - - Respiratory Rate - - Oxygen Saturation 99% 04/03/2024 10:51 AM EDT Inhaled Oxygen Concentration - - Weight 82.6 kg (182 lb) 04/03/2024 10:51 AM EDT Height 162.6 cm (5' 4) 04/03/2024 10:51 AM EDT Body Mass Index 31.24 04/03/2024 10:51 AM EDT documented in this encounter Progress Notes * Carlos Alberto Castellanos MD - 04/03/2024 10:40 AM EDT Images from the original note were not included. 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 She ended up at [facility], where she was given IV diltiazem, [...] to be increasing. Some triggers include possible dehydration. LVEF: TTE, January 2023 unremarkable Ischemia Eval: None Ambulatory monitor: January 2023, Zio patch, normal sinus rhythm, no atrial fibrillation Anticoagulated: No Antiarrhythmics: No Sleep apnea: NASRA - CPAP for 10 years She exercises on a stationary bike about 30 to 60 minutes at a time. No chest pain or symptoms of heart failure. She recently saw Dr. Grey at [facility], there was some discussion about consideration of antiarrhythmic therapy. Problem List Patient Active Problem List Diagnosis PAF (paroxysmal atrial fibrillation) Asthma Gastroesophageal reflux Obstructive sleep apnea Hypothyroidism Review of Systems Review of Systems Constitutional: Positive for weight loss. Cardiovascular: Positive for irregular heartbeat. Meds Current Outpatient Medications Medication Sig Dispense Refill dilTIAZem (Tiazac) 300 mg ER 24 hr capsule Take 1 capsule by mouth Daily at Noon. levothyroxine (Synthroid) 75 mcg tablet Take 75 mcg by mouth every morning. medroxyPROGESTERone (Provera) 2.5 mg tablet Take 1 tablet by mouth Daily at Noon. multivitamin (THERAGRAN) Tablet Take 1 tablet by mouth daily. albuterol (VENTOLIN HFA) 90 mcg/Actuation inhaler montelukast (SINGULAIR) 10 mg tablet famotidine (PEPCID) 40 mg tablet No current facility-administered medications for this visit. Social History Social History Socioeconomic History Marital status: Spouse name: None Number of children: None Years of education: None Highest education level: None Occupational History None Tobacco Use Smoking status: Never Smokeless tobacco: Never Substance and Sexual Activity Alcohol use: None Drug use: None Sexual activity: None Other Topics Concern None Social History Narrative None Social Determinants of Health Financial Resource Strain: Not on file Food Insecurity: Not on file Transportation Needs: Not on file Physical Activity: Not on file Intimate Partner Violence: Not on file Housing Stability: Not on file 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 Cardiovascular: Rate and Rhythm: Normal rate and regular rhythm. Pulses: Normal pulses. Skin: General: Skin is warm. Neurological: General: No focal deficit present. Mental Status: She is alert. 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 Rate control with beta blockers, calcium channel blockers, digoxin), antiarrhythmic therapy and the role of ablation We discussed the difference between medical therapy, anti-arrhythmic therapy, ablation, cryoblation, RF ablation. Major complications from a first procedure - approximately 5% of patients. ~ 1.5 % risk of tamponade, esophageal injury 0.5%, vagus nerve damage < 1%, phrenic nerve damage < 1%, vascular complications ~ 2%, CVA ~ 1%, Pericarditis ~ 20%, 0.1% 15 % of patients have more frequent AF in the post ablation period 20-40% of patients require repeat atrial fibrillation ablation, but this is generally deferred for over three months after the index procedure Some patients may require antiarrhythmic therapy and/or cardioversions during the 'blanking' periodafter the ablation. We also briefly discussed the role of 'pace and ablate' procedure as well as the difference betweencryo-balloon ablation and radiofrequency ablation reviewing the higher risk of phrenic nerve injuryfrom cryoablation. We also reviewed the newer technique of Pulsed Field ablation (PFA) We discussed the role of risk factor modification (ideal weight, treatment of sleep apnea, alcohol cessation etc) and the importance of risk factor modification both prior to and after ablation to maximise chances to maintain sinus rhythm After all this discussion, she is quite clear that because of her symptom burden, impact on qualityof life, preference to not take antiarrhythmic therapy, that she would like to proceed with atrial fibrillation ablation. Will schedule her for PFA ablation. Recommendations / Plan A) No changes to current medications B) I will schedule for atrial fibrillation ablation (PFA) C) She is a good candidate for same-day discharge-should be first case D) Need to obtain copies of her ECGs from her emergency room visits E) Will need to start anticoagulation prior to ablation (1 month prior, 3 months after) CARLOS ALBERTO CASTELLANOS MD Cardiac Electrophysiology [facility] [place] T: [phone] F: [phone] 45 minutes were spent preparing to see the patient (e.g. review of tests, updating the medical record), obtaining and/or reviewing separately obtained history, performing a medically appropriate examination and/or evaluation, counseling and educating the patient, ordering medications, tests, or proc edures, documenting clinical information in the electronic medical record, independently interpreting results Cc: ALICIA Gallo MD documented in this encounter Plan of Treatment Upcoming Encounters Date Type Department Care Team (Late st Contact Info) Description 07/08/2024 3:30 PM EDT Office Visit Cardiology at [address] [id number] Jeyson Angel PA [facility] [place] [address] Scheduled Orders Name Type Priority Associated Diagnoses Orde r Schedule Transesophageal Echocardiogram (VIVIEN) Echocardiography Routine Paroxysmal atrial fibrillation Expected: 10/03/2024, Expires: 10/03/2024 CT Cardiac for Morphology & Function Imaging Routine Paroxysmal atrial fibrillation Expected: 10/03/2024, Expires: 10/03/2024 documented as of this encounter Visit Diagnoses 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
--- OUTSIDE RECORDS SUMMARY | 2024-05-21 22:54 | XMS_ITS | Encounter Summary ---
Author Organization [facility] Address [address] [place] [address] Care Team Providers Care Pipefitter Welder Name Role Phone Unavailable Primary Care Provider Unavailabl e Encounter Details Date Type Department Care Team (Latest Contact Info) Description 09/22/2009 17:17 EST - 09/22/2009 17:18 EST Hospital Encounter [facility] - Other [address] [place] [address] Venus Morales MD [address] [place] [id number] Discharge Disposition: Home or Self Care Social History Tobacco Use Types Packs/Day Years Used Date Smoking Tobacco: Never Assessed Sex and Gender Information Value Date Recorded Sex Assigned at Not on file Gender Identity Not on file Sexual Orientation Not on file documented as of this encounter Discharge Disposition Disposition Code Departure Means Destination Home or Self Care documented in this encounter Plan of Treatment Not on file documented as of this encounter Visit Diagnoses Not on filedocumented in this encounter
--- OUTSIDE RECORDS SUMMARY | 2024-05-21 22:54 | XMS_ITS | Encounter Summary ---
Author Organization [facility] Address [address] [place] [address] Care Team Providers Care Pathology Laboratory Aide Name Role Phone Katy Martinez MD Primary Care Provider [phone] Encounter Details Date Type Department Care Team (Late st Contact Info) Description 06/10/2013 Results Only [facility] - [facility] [place] [place] [address] [place], [place] [address] Kevin Coley, DO [address] [facility] ,[facility] [address] [place], [place] [id number] Social History Tobacco Use Types Packs/Day Years Used Date Smoking Tobacco: Never Assessed Sex and Gender Information Value Date Recorded Sex Assigned at Not on file Gender Identity Not on file Sexual Orientation Not on file documented as of this encounter Plan of Treatment Not on file documented as of this encounter Procedures Procedure Name Priority Date/Time Associated Diagnosis Comments SURGICAL PATHOLOGY Routine 06/10/2013 9:25 EDT documented in this encounter Results * SURGICAL PATHOLOGY (06/10/2013 9:25 EDT) Pathology Report: SURGICAL PATHOLOGY REPORT Reports generated via electronic interface contain original data; however they are lacking the format of the original report. Caution should be taken when reading/interpreting unformatted reports. Name: ? PEYTON SCHULZ ? Accession #: ? [id number] ? : ? 1960 (Age: 52) ??F ? Collect Date: ? 06/10/2013 ? Location: ? [facility] ? Receive Date: ? 06/11/2013 ? Provider: DONTA RADER DPM Copy to: KATY MARTINEZ MD ? 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 ??See comment. Comment: Dr. Rolle has reviewed this case in consultation. ??Sections feature of soft tissue with cystic spaces bordered by histiocytes and giant cells containing fibrinous and amorphous material with calcification. ??Polarizable material is identified. 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 ??Subclassification of this type of lesion requires clinical correlation with consideration of performing an analysis of serum calcium and phosphate and vitamin D levels and correlation with family history to exclude primary hyperphosphatemia tumoral calcinosis. ??As some cases of scleroderma may present with this entity, serologic testing for collagen vascular disease may also be a consideration. ??Most patients with primary normophosphatemic tumoral calcinosis do not show evidence of recurrent disease or development of additional lesions after local excision (Am J Surg Pathol 2007:31:15-25. Dr. Avila 06/17/2013 10:02 AM Document reviewed and electronically signed by: LUIS MANUEL AVILA MD Report ??Date: 06/17/2013 10:03 By the signature above, the attending physician certifies that he/she has personally conducted a gross and/or microscopic examination of the described specimens and rendered or confirmed the above diagnosis. 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 Received in formalin labelled with proper patient identification (initials S, L) and mass 2nd toe left foot is an unoriented firm pink-lancaster ovoid soft tissue (0.9 x 0.7 x 0.4 cm). The outer surface is inked blue. Sectioning discloses a firm torrez-lancaster mottled cut surface without hemorrhage. The entire specimen is submitted as cassette 1. Joellen Coombs 06/11/2013 10:37 AM End of Report GURDEEP CRAIG 06/10/2013 9:25 EDT 06/11/2013 9:25 EDT Donta Rader DPKenya PATHOLOGY [facility] [address] [place] [address] documented in this encounter Visit Diagnoses Not on filedocumented in this encounter Care Teams Pathology Laboratory Aide Relationship Specialty Start Date End Date Katy Martinez MD [address] [place] [address] PCP - General 09/29/09 documented as of this encounter
--- OUTSIDE RECORDS SUMMARY | 2024-05-21 22:54 | XMS_ITS | Encounter Summary ---
Author Organization [facility] Address [address] [place] [address] Care Team Providers Care Beer Merchant Name Role Phone Unavailable Primary Care Provider Unavailabl e Encounter Details Date Type Department Care Team (Latest Contact Info) Description 09/26/2009 8:13 EST - 09/26/2009 8:15 EST Hospital Encounter [facility] - Other [address] [place] [address] Venus Morales MD [address] [place] [id number] Discharge Disposition: Home or Self Care Social [...]
== END 2024-05-21 22:53 | disposition home or self-care (01) ==
LOC: NCHCN 22:52
PROVIDERS: PCP Family Medicine; Visit Provider Nurse Practitioner Family
DX: E03.9 Hypothyroidism, unspecified (principal)
CPT/HCPCS: 84443

== ENCOUNTER 2025-06-24 15:56 | Outpatient (REF) | payer MEDICARE, BC, SELFPAY ==
[2025-06-24 19:40] LABS: TSH (W/Ref FT4) 0.57 uIU/mL (0.36-3.74)
== END 2025-06-24 15:57 | disposition home or self-care (01) ==
LOC: NCHCN 15:56
PROVIDERS: PCP Family Medicine; Visit Provider Nurse Practitioner Family
DX: Z00.00 Encounter for general adult medical examination without abnormal findings (principal)
CPT/HCPCS: 84443